=== PATIENT | male | born 1935 | race Caucasian/White ===

== ENCOUNTER 2018-09-24 11:02 | Outpatient (CLI) | payer MEDICARE, BC ==
[~2018-09-24] VITALS: Ht 188 cm; Wt 113.6 kg
--- NOTE | ~2018-09-24 | HEMODYNAMI ---
PATIENT:MYRA QUICK MEDICAL RECORD: [id number] : 31 LOCATION:[facility] ADMISSION DATE: 09/24/18 Generatedon:09/24/201814:05 Patient name: MYRA QUICK Patient #: [id number] SSN: : 1935 Date of study: 09/24/2018 Page: Of Hemodynamic Procedure Report Patient Data Patient Demographics Procedure consent was obtained First Name: MYRA Gender: Male Last Name: YNES : 1935 [facility] Initial: G Age: 83 year(s) Patient #: [id number] Race: Additional ID: [id number] Contact details [address]: [address] [place] [address] State: [place] City: [place] Zip code: [address] Past Medical History Allergies Allergen Reaction Date Comments Reported Contrast 08/09/2015 Iodine 08/09/2015 Toradol 08/09/2015 IV contrast dye 09/24/2018 Adhesive tape 09/24/2018 Toradol 09/24/2018 Admission Admission Data Admission Date: 09/24/2018 Admission Time: 11:02 Admit Source: Other Procedure Procedure Types Cath Procedure Diagnostic Procedure PPM/ICD PPM Dual Implant Sedation Charges Moderate Sedation up to 30 minutes Procedure Description Procedure Date Procedure Date: 09/24/2018 Procedure Start Time: 13:25 Procedure Staff Name Function Ashish Begum MD Performing Physician Jay Nelson MD Assisting physician Laurence Morley RT Monitor Crissy Villareal RN Nurse Bacilio Coyne RT Scrub Procedure Data Cath Procedure Fluoroscopy Diagnostic fluoroscopy Total fluoroscopy Time: 5.8 time: 5.8 min min Diagnostic fluoroscopy Total fluoroscopy dose: 282 dose: 282 mGy mGy Estimated blood loss: 5 ml Procedure Complications No complications Procedure Medications Medication Administration Route Dosage Oxygen etCO2 Nasal cannula 2 l/min Lidocaine 1% added to field 20 Ancef (1Gm/50ml NS) I.V.P.B 1 g Ancef Irrigation Topical 1 g (1gm/500ml NS) Versed I.V. 1 mg Fentanyl I.V. 50 mcg Versed I.V. 1 mg Fentanyl I.V. 50 mcg Clonidine P.O. 0.1 mg Hemodynamics Rest Heart Rate: 39 (bpm) Snapshots Pre Cath Intra NCS Post Cath Vital Signs Time Heart Resp SPO2 etCO2 NIBP (mmHg) Rhythm Pain Sedation Rate (ipm) (%) (mmHg) Status Level (bpm) 12:59:39 37 29 96 0 Measuring SB 0 (11) 10(A) , No pain 13:06:57 37 21 96 0 196/108(164) SB 0 (11) 10(A) , No pain 13:11:44 37 18 93 0 192/66(142) SB 0 (11) 10(A) , No pain 13:16:26 34 18 93 0 188/64(153) SB 0 (11) 10(A) , No pain 13:21:07 35 16 96 0 188/74(146) SB 0 (11) 10(A) , No pain 13:26:59 34 17 95 0 172/58(128) SB 0 (11) 9(A) , No pain 13:31:22 35 18 94 0 136/64(131) SB 0 (11) 9(A) , No pain 13:42:27 31 23 98 0 167/92(148) SB 0 (11) 9(A) , No pain 13:48:07 40 20 99 0 176/88(142) SB 0 (11) 9(A) , No pain 13:53:57 85 27 99 0 200/94(145) Paced 0 (11) 10(A) , No pain 13:58:40 87 26 100 0 200/95(144) Paced 0 (11) 10(A) , No pain 14:03:23 66 31 99 0 204/102(157) Paced 0 (11) 10(A) , No pain Medications Time Medication Route Dose Verified Delivered Reason Notes Effec tiveness by by 12:57:21 Oxygen etCO2 2 Ashish Woodward used for Nasal l/min St Shukri Villareal outdoor adventure leader cannula 12:57:31 Lidocaine added 20ml Ashish Thompson for local 1% to vialx2 St Shukri Nelson MD anesthetic field 12:57:41 Ancef I.V.P.B 1 g Ashish Woodward used for (1Gm/50ml St Shukri Villareal outdoor adventure leader NS) 12:57:47 Ancef Topical 1 g Ashish Woodward used for Irrigation St Shukri Villareal RN procedure (1gm/500ml NS) 13:23:08 Versed I.V. 1 mg Ashish Fossie for sedation St Shukri Villareal RN, MD 13:23:15 Fentanyl I.V. 50 mcg Ashish Fossie for sedation St Shukri Villareal RN, MD 13:29:58 Versed I.V. 1 mg Ashish Fossie for sedation St Shukri Villareal RN, MD 13:30:02 Fentanyl I.V. 50 mcg Ashish Woodward for sedation St Shukri Villareal RN, MD 14:01:58 Clonidine P.O. 0.1 mg [address] for [facility] Shukri Villareal RN hypertension MD Procedure Log Time Note 12:32:31 Admit Source: Other 12:33:16 Diagnostic Cath status Elective 12:33:18 Crissy Villareal RN sent for patient. Start room use. 12:33:26 Time tracking: Regular hours (M-F 7:00 - 5:00) 12:33:30 Plan of Care:Hemodynamics will remain stable., Cardiac rhythm will remain stable., Comfort level will be maintained., Respiratory function will remain adequate., Patient/ family verbilizes understanding of procedure., Procedure tolerated without complication., Recovers from procedure without complications.. 12:42:04 Patient received from Pre/Post Procedure Room to CCL 3 Alert and oriented. Tansferred to table in Supine position. 12:42:05 Warm blankets applied, and tova hugger turned on for patient comfort. 12:42:06 Correct patient and procedure confirmed by team. 12:42:07 Signed procedure consent form obtained from patient. 12:42:07 ECG and BP/O2 sat monitors applied to patient. 12:42:08 Full Disclosure recording started 12:57:21 Oxygen 2 l/min etCO2 Nasal cannula was administered by Crissy Villareal RN; used for procedure; 12:57:31 Lidocaine 1% 20ml vialx2 added to field was administered by Jay Nelson MD; for local anesthetic; 12:57:41 Ancef (1Gm/50ml NS) 1 g I.V.P.B was administered by Crissy Villareal RN; used for procedure; 12:57:47 Ancef Irrigation (1gm/500ml NS) 1 g Topical was administered by Crissy Villareal RN; used for procedure; 12:57:50 Vital chart was started 12:59:57 Baseline sample Acquired. 13:00:04 Rhythm: 2nd degree heart block 13:00:20 H&P Date Dictated: 09/19/2018 Within 30 days and on chart., H&P Addendum completed by physician on day of procedure. (MUST COMPLETE FOR ALL OUTPATIENTS). 13:00:22 Pre-procedure instructions explained to patient. 13:00:22 Pre-op teaching completed and patient verbalized understanding. 13:00:26 Family in patients room. 13:00:27 Patient NPO since Midnight. 13:00:40 Patient allergic to IV contrast dye 13:00:45 Patient allergic to Adhesive tape 13:00:50 Patient allergic to Toradol 13:00:53 Is the patient allergic to Iodine/contrast media? Yes. 13:00:59 Was the patient premedicated? No 13:01:01 Is patient on blood thinner?No 13:01:03 Patient diabetic? Yes. 13:01:04 If diabetic: On Metformin? No 13:01:16 Previous problem with sedation/anesthesia? No ? 13:01:19 Snore? Yes 13:01:19 Sleep apnea? Yes 13:01:20 Deviated septum? No 13:01:21 Opens mouth fully? Yes 13:01:22 Sticks out tongue? Yes 13:01:24 Airway obstruction? No ? 13:01:26 Dentures? No ? 13:01:32 Patient pain scale 0/10 ?. 13:01:46 IV patent on arrival in right forearm with 0.9% NaCl at [facility]. 13:01:48 Lab results completed and on chart. 13:01:55 Left chest area was prepped with chlora-prep and draped in sterile fashion 13:01:56 Alarms reviewed by R. N. 13:01:57 Sharps counted by scrub and verified by R.N. 13:02:13 Use device set BUDDY PPM 13:02:15 2-0 Ticron Multipack ([id number]) opened to sterile field. 13:02:16 3-0 Vicryl Single Pack [id number] opened to sterile field. 13:02:16 5-0 Monocryl PS2 [id number] opened to sterile field. 13:02:16 Cautery Tip Management Coordinator opened to sterile field. 13:02:17 Cautery Pushbutton Pencil opened to sterile field. 13:02:18 Mepilex Dressing ([id number]) opened to sterile field. 13:02:31 Medtronic volunteer patient representative AVERY ARANGO present for procedure. 13:04:17 Pre sharps counted by scrub and verified by RN: Sutures: 7; Sponges: 5; Stick needles: 2; Skin needles: 2; Blade: 1; Cautery: 1 13:04:19 Grounding pad site Left thigh. 13:04:21 Grounding pad site free from injury. 13:06:25 Physician paged 13:21:44 Final Timeout: patient, procedure, and site verified with staff and physician. All members of the team are in agreement. 13:21:57 Left chest site verified by team. 13:22:00 Physical assessment completed. ASA score P 2 - A patient with mild systemic disease as per Ashish Begum MD. 13:22:03 Sedation plan: IV Moderate Sedation Medication:Versed, Fentanyl 13:23:08 Versed 1 mg I.V. was administered by Crissy Villareal RN; for sedation; 13:23:15 Fentanyl 50 mcg I.V. was administered by Crissy Villareal RN; for sedation; 13:25:17 Lidocaine 1% was administered to left subclavicular area by Jay Nelson MD . 13:25:49 Incision made to left subclavicular area. 13:28:50 Generator pocket made/opened. 13:29:54 Left subclavian vein accessed with 7Fr Peel Away Sheath. 13:29:57 Left subclavian vein accessed with 7Fr Peel Away Sheath. 13:29:58 Versed 1 mg I.V. was administered by Crissy Villareal RN; for sedation; 13:30:02 Fentanyl 50 mcg I.V. was administered by Crissy Villareal RN; for sedation; 13:30:23 Ventricular lead inserted and advanced. 13:30:41 Atrial lead inserted and advanced. 13:30:56 DR BEGUM SCRUBBED IN 13:31:59 10- XRAY GAUZE ADDED TO FIELD 13:36:22 Ventricular lead positioned. 13:40:19 Ventricular lead tested. 13:41:55 Ventricular lead repositioned. 13:41:59 Ventricular lead tested. 13:43:22 Atrial lead positioned. 13:44:11 Atrial lead tested. 13:44:57 Atrial lead repositioned. 13:45:00 Atrial lead tested. 13:46:43 Ventricular lead repositioned. 13:46:47 Ventricular lead tested. 13:47:06 Peel-a-way sheath was split and removed. 13:47:10 Peel-a-way sheath was split and removed. 13:48:35 Ventricular lead attachment was completed with 2-0 ticron. 13:49:25 Atrial lead attachment was completed with 2-0 ticron. 13:50:47 PPM Dual was attached to lead(s) and inserted into pocket. 13:50:58 Medtronic Advisa MRI PPM Dual Generator [id number] opened to sterile field. 13:51:35 Medtronic 4074-58 PPM Lead opened to sterile field. 13:52:05 Medtronic 4574-53 PPM Lead opened to sterile field. 13:52:48 Generator was sutured in place with 2-0 ticron. 13:52:54 Device pocket was irrigated with Ancef. 13:53:05 Subcutaneous closure was completed with 3-0 vicryl. 13:53:16 Parameters-- Generator: Mode: DDDR. Lower Rate: 60bpm. Upper Rate: 120bpm. 13:53:35 Parameters--Ventricular P/R Wave: 11.2mV. Current: 0.5mA; Threshold: 1.1V; Impedence: 1350OHMS. 13:53:53 Parameters--Atrial P/R Wave: 1.2mV. Current: 1.9mA; Threshold: 0.7V; Impedence: 435OHMS. 13:54:40 Skin closure was completed with 5-0 monocryl. 13:54:46 Lt Chest incision was dressed with Mepilex dressing. 13:55:10 Procedure ended.(Physican Out) 13:55:20 Fluoroscopy time 05.80 minutes. 13:55:24 Fluoroscopy dose: 282 mGy 13:55:24 Flurop Dose total: 282 13:55:25 Sharps counted by scrub and verified by R.N. 13:55:41 Post sharps counted by scrub and verified by RN: Sutures: 7; Sponges: 5; Stick needles: 2; Skin needles: 2; Blade: 1; Cautery: 1 13:56:01 POST COUNT: 10 - BECCA KEATING 13:56:07 Insertion/operative site no bleeding no hematoma. 13:56:36 Post Chest area:stable, clean and dry 13:56:37 Post Procedure Pulses reassessed and unchanged 13:56:40 Post-procedure physical assessment completed. ASA score P 2 - A patient with mild systemic disease as per Ashish Begum MD. 13:56:42 Post procedure rhythm: unchanged. 13:56:44 Estimated blood loss: 5 ml 13:56:46 Post procedure instruction explained to patient.Patient verbalizes understanding. 13:56:46 Patient needs reinforcement of post procedure teaching. 13:57:09 Procedure type changed to Cath procedure, Diagnostic procedure, PPM/ICD, PPM Dual Implant, Sedation Charges, Moderate Sedation up to 30 minutes 13:57:17 Procedure Complication : No complications 13:57:20 See physician's report for complete and final results. 13:57:46 Immobilizer Large opened to sterile field. 13:58:03 Procedure and supply charges have been captured, reviewed, submitted and are correct. 14:01:58 Clonidine 0.1 mg P.O. was administered by Crissy Villareal RN; for hypertension; 14:04:30 Vital chart was stopped 14:04:32 Report given to PCU. 14:04:38 Patient transfered to PCU with Bed. 14:04:49 End room use (Document Last) Device Usage Item Name Manufacture Quantity Catalog Hospital Part Current Minimal Lot# / Number Charge Number Stock Stock Serial# Code 2-0 Ticron Ethicon 2 [id number] 658615 70184 [id number] 5 Multipack ([id number]) 3-0 Vicryl Ethicon 1 [id number] 660896 602626 745008 5 Single Pack [id number] 5-0 Monocryl Ethicon 1 Y495G 278498 774997 942899 5 PS2 Y495G Cautery Tip Microtek 1 [id number] 261730 457401 411703 5 Management Coordinator [employer] Cautery Microtek 1 [id number] 340505 00385 [id number] 5 Pushbutton Medical Inc[employer] Pencil Mepilex Cardinal 1 [id number] 320056 774553 350438 5 [facility] ([id number]) Medtronic Medtronic 1 A2DR01 [id number] [id number] 5 [id number] Advisa MRI 2020-01-22 PPM Dual Generator A2DR01 Medtronic Medtronic 1 407458 544347 812057 5 [id number] 40758 PPM 2020-05-07 Lead Medtronic Medtronic 1 4574-53 724938 029211 5 [id number] 45753 PPM 2020-05-30 Lead Immobilizer [place] [address] 72-90949 850878 175933 991256 5 Large Health Signature Audit [place] Stage Time Signature Unsigned Intra-Procedure 09/24/2018 Laurence 2:05:37 PM Counts RT(R) Signatures Monitor : Laurence Signature : Counts RT Date : Time : [place] [id number]
[~2018-09-24 11:02] MED LIST: ACETAMINOPHEN500 M1 PO; ASPIRIN325 MG PO; BACTRIM DS TABL1 TAB PO; CASODEX50 MG PO; CENTRUM COMPLE1 EACH PO; COLACE100 MG PO; COREG12.5 MG PO; DULCOLAX5 MG PO; GEODON20 M1 IM; GEODON20 MG IM; GLUCOTROL 5 MG T5 MG PO; ICAPS AREDS1 TAB.SA PO; JANUVIA50 MG PO; LANTUS INSULIN10 ML SQ; LASIX20 MG PO; LIPITOR80 MG PO; MILK OF MAGNESI30 ML PO; MIRALAX17 GM PO; MYLANTA / MAALO30 ML PO; NORVASC5 MG PO; NYSTATIN OINTME15 GM TP; PEPCID20 MG PO; PREDNISONE20 MG PO; PROSCAR5 MG PO; PROTONIX40 MG PO; SENOKOT-S TABLE1 TAB PO; SLOW RELEASE I160 MG PO; THEREMS-M1 TAB PO; XARELTO10 MG PO; XTANDI; ZOFRAN ODT4 MG/UDTAB PO
[2018-09-24] MEDS ORDERED: TOPROL XL50 MG PO (11:25)
[2018-09-24 11:35] VITALS: BP 179/53; BMI 32.1
[2018-09-24 11:56] LABS: HEMATOCRIT 30.7 % (42.0-54.0); HEMOGLOBIN 9.5 g/dL (13.5-17.5); MCH 33.5 pg (26.0-34.0); MCHC 30.9 g/dL (31.0-37.0); MCV 108.1 fL (80.0-100.0); MEAN PLATELET VOLUME 11.9 fL (7.4-10.4); RBC 2.84 10x6/uL (4.20-6.10); WBC 9.2 10x3/uL (4.8-10.8)
[2018-09-24 12:18] LABS: APTT 32.1 SECONDS (22.8-39.4); INR 1.1 (0.85-1.17); PROTIME 13.7 SECONDS (11.6-15.0)
[2018-09-24 12:21] LABS: ANION GAP 8.4 mmol/L (8-16); CALCIUM 11.5 mg/dL (8.5-10.1); CARBON DIOXIDE 30.9 mmol/L (21.0-32.0); CREATININE - SERUM 1.7 mg/dL (0.6-1.3); POTASSIUM - SERUM 4.3 mmol/L (3.5-5.1)
[2018-09-24 15:52] VITALS: BP 136/56
[2018-09-24 15:56] VITALS: Ht 188 cm; Wt 113.6 kg
[2018-09-24 19:00] VITALS: BP 199/73
--- NOTE | 2018-09-24 20:44 | NUR ---
RESUMING PATIENT CARE. PATIENT IS ALERT AND ORIENTED. RESTING COMFORTABLY IN BED. RESPIRATIONS ARE EVEN AND UNLABORED. NO S/S OF DISTRESS. NO C/O PAIN. PATIEN DENIES NEEDS AT THIS TIME. CALL LIGHT WITHIN REACH. WILL CPOC.
[2018-09-25] VITALS: BP 190/73
[2018-09-25 04:00] VITALS: BP 199/46
[2018-09-25 07:55] VITALS: BP 178/55
--- NOTE | 2018-09-25 08:04 | NUR ---
REPORT RECEIVED. WILL CONTINUE WITH POC. PT CURRENTLY LYING SUPINE. CALL LIGHT W/I REACH. RR EVEN AND UNLABORED ON RA. R.FOR PIV IS SALINE LOCKED. PT IS AAO AND DENIES ANY NEEDS. WILL CTM. L.ARM IS IN SLING. PACEMAKER DRESSING IS C/D/I.
--- NOTE | 2018-09-25 09:56 | NUR ---
LEFT ARM IN SLING. AT BS. CALL LIGHT IN REACH. WILL CONT. PLAN OF CARE.
--- NOTE | 2018-09-25 09:57 | MORECARE ---
CASE MANAGEMENT DISCHARGE SUMMARY PATIENT: MYRA QUICK UNIT: [id number] ADM DATE: 09/24/18 AGE: 83 : 33 SEX: M ROOM/BED: D.2125 AUTHOR: DAVE MEZA PHYSICIAN: REFERRING PHYSICIAN: LUIS BEGUM MD DATE OF SERVICE: 09/25/18 Discharge Plan [facility]RA [facility]ICK [facility] [facility] 1935 Planned Disposition: Home with Home Health Anticipated Discharge Date: 09/25/18 Discharge Date: Expected LOS: 1 Initial Reviewer: [email or web address] Initial Review Date: 09/25/2018 Generated: 09/25/18 10:57 am Patient Name: MYRA QUICK Page [id number] at 0957 All edits/amendments must be made on the electronic document DICTATION DATE: 09/25/18955 PROFESSIONAL SOCCER PLAYER: DORA 09/25/18955 RPT#: [id number] DC DATE: STATUS: [facility] I [facility] [address] [place] [address] END OF REPORT
--- NOTE | 2018-09-25 11:07 | MORECARE ---
CASE MANAGEMENT DISCHARGE SUMMARY PATIENT: MYRA QUICK UNIT: [id number] ADM DATE: 09/24/18 AGE: 83 : 33 SEX: M ROOM/BED: D.0026 AUTHOR: DERRICKDOC PHYSICIAN: REFERRING PHYSICIAN: LUIS BEGUM MD DATE OF SERVICE: 09/25/18 Discharge Plan Patient Name: MYRA QUICK Facility: [facility]:[place] : 1935 Planned Disposition: Home with Home Health Anticipated Discharge Date: 09/25/18 Discharge Date: Expected LOS: 1 Initial Reviewer: [email or web address] Initial Review Date: 09/25/2018 Generated: 09/25/18 12:07 pm Comments DCP- Discharge Planning Updated by [email or web address]: Yesenia Trinh on 09/25/18 10:[address] Patient Name: MYRA QUICK Admission Status: Elective Accout number: [id number] Admission Date: 09-24-2018 : 1935 Admission Diagnosis: Attending: LUIS BEGUM Current LOS: 1 Anticipated DC Date: 09-25-2018 Planned Disposition: Home with Home Health Primary Insurance: MEDICARE A & B Discharge Planning Comments: CM MET WITH PATIENT'S YESTERDAY PER HER REQUEST. SHE IS CONCERNED SHE CANT TAKE CARE OF AT HOME. STATES IF HE NEEDS SNF SHE WOULD LIKE THE [facility] SINCE THEY LIVE IN AN APPARTMENT THERE. CM WILL FOLLOW AND ASSIST NEEDED WITH DC PLANNING/NEEDS. Wrapper Sheeter: Yesenia Trinh DCPIA - Discharge Planning Initial Assessment Updated by [email or web address]: Yesenia Trinh on 09/25/18 11:04 am * PCP [facility] * Pharmacy [facility] * Preadmission Environment [facility] Apartment * Facility Name [facility] * ADLs Partial Dependent * Partial ADLs (Assistance needed) Ambulation * Equipment CPAP Walker * List name and contact numbers for known caregivers / representatives who currently or will assist patient after discharge: JOSHUA MOORE, * Community resources currently utilized None * Additional services required to return to the preadmission environment? Yes * Has this patient been hospitalized within the prior 30 days at any hospital? No Last DP export: 09/25/18 8:57 a Patient Name: MYRA QUICK Page 29171 at 1107 All edits/amendments must be made on the electronic document DICTATION DATE: 09/25/181105 BISCUIT FACTORY WORKER: DORA 09/25/181105 RPT#: [id number] DC DATE: STATUS: [facility] [address] [place] [address] END OF REPORT
[2018-09-25 11:14] VITALS: BP 179/73
--- NOTE | 2018-09-25 12:53 | MORECARE ---
CASE MANAGEMENT DISCHARGE SUMMARY PATIENT: MYRA QUICK UNIT: [id number] ADM DATE: 09/24/18 AGE: 83 : 33 SEX: M ROOM/BED: D.4068 AUTHOR: DERRICKDOC PHYSICIAN: REFERRING PHYSICIAN: LUIS BEGUM MD DATE OF SERVICE: 09/25/18 Discharge Plan Patient Name: MYRA QUICK Facility: [facility]:[place] : 1935 Planned Disposition: Inpatient Rehab Anticipated Discharge Date: 09/25/18 Discharge Date: Expected LOS: 1 Initial Reviewer: [email or web address] Initial Review Date: 09/25/2018 Generated: 09/25/18 1:52 pm Comments DCP- Discharge Planning Updated by [email or web address]: Yesenia Trinh on 09/25/18 10:[address] Patient Name: MYRA QUICK Admission Status: Elective Accout number: [id number] Admission Date: 09-24-2018 : 1935 Admission Diagnosis: Attending: LUIS BEGUM Current LOS: 1 Anticipated DC Date: 09-25-2018 Planned Disposition: Home with Home Health Primary Insurance: MEDICARE A & B Discharge Planning Comments: CM MET WITH PATIENT'S YESTERDAY PER HER REQUEST. SHE IS CONCERNED SHE CANT TAKE CARE OF AT HOME. STATES IF HE NEEDS SNF SHE WOULD LIKE THE [facility] SINCE THEY LIVE IN AN APPARTMENT THERE. CM WILL FOLLOW AND ASSIST NEEDED WITH DC PLANNING/NEEDS. Special Library Librarian: Yesenia Trinh DCPIA - Discharge Planning Initial Assessment Updated by [email or web address]: Yesenia Trinh on 09/25/18 11:04 am * PCP [facility] * Pharmacy [facility] * Preadmission Environment [facility] Apartment * Facility Name [facility] * ADLs Partial Dependent * Partial ADLs (Assistance needed) Ambulation * Equipment CPAP Walker * List name and contact numbers for known caregivers / representatives who currently or will assist patient after discharge: JOSHUA MOORE, * Community resources currently utilized None * Additional services required to return to the preadmission environment? Yes * Has this patient been hospitalized within the prior 30 days at any hospital? No Last DP export: 09/25/18 10:07 a Patient Name: MYRA QUICK Page 73958 at 1253 All edits/amendments must be made on the electronic document DICTATION DATE: 09/25/181251 SPECIALTY TRIMMER: DORA 09/25/181251 RPT#: [id number] DC DATE: STATUS: [facility] [address] [place] [address] END OF REPORT
--- NOTE | 2018-09-25 13:03 | MORECARE ---
CASE MANAGEMENT DISCHARGE SUMMARY PATIENT: MYRA QUICK UNIT: [id number] ADM DATE: 09/24/18 AGE: 83 : 33 SEX: M ROOM/BED: D.7291 AUTHOR: DERRICK,DOC PHYSICIAN: REFERRING PHYSICIAN: LUIS BEGUM MD DATE OF SERVICE: 09/25/18 Discharge Plan Patient Name: MYRA QUICK [facility] [facility] 1935 Planned Disposition: Inpatient Rehab Anticipated Discharge Date: 09/25/18 Discharge Date: Expected LOS: 1 Initial Reviewer: [id number] Initial Review Date: 09/25/2018 Generated: 09/25/18 2:02 pm Comments DCP- Discharge Planning Updated by [id number]: Carlos Rowley on 09/25/18 12:[address] Patient Name: MYRA QUICK Encounter No: [id number] : 1935 Primary Insurance: MEDICARE A & B Anticipated DC Date: 09-25-2018 Planned Disposition: Inpatient Rehab External Planned Provider: [facility] DCP follow-up note: CM MET WITH PT AND SPOUSE IN ROOM TO DISCUSS DISCHARGE NEEDS. PT HAS BEEN DISCHARGED HOME. PT'S SPOUSE STATES SHE CANNOT TAKE CARE OF PT AT HOME. PT DOES NOT HAVE THREE MIDNIGHT STAY IN INPATIENT BED TO QUALIFY FOR MEDICARE REHAB SERVICES IN [facility]. CM DISCUSSED HOME HEALTH SERVICES WELL PERSONAL CARE SERVICES. CM DISCUSSED PRIVATE PAY MANAGER WAREHOUSE CARE SERVICES PT DOES NOT QUALIFY FOR MEDICAID SERVICES. PT'S SPOUSE ASKED CM TO CHECK WITH [facility] FOR OPTIONS OF REHAB PLACEMENT AND REPORTS HAVING MANAGER WAREHOUSE CARE POLICY. PT NOR SPOUSE KNOW WHAT THE MANAGER WAREHOUSE CARE POLICY COVERS; CM EXPLAINED THAT MANAGER WAREHOUSE CARE POLICY IN GENERAL, DOES NOT COVER REHAB SERVICES. PT'S SPOUSE REPORTS [facility] HAS PERSONAL CARE SHE MAY HIRE AT HOME IF NECESSARY. CM OBTAINED ORDER FOR PHYSICAL THERAPY EVALUATION. CM CALLED AND SPOKE TO [facility], , WHO EXPLAINED THAT THEY COULD BRING PT TO REHAB AND BILL MEDICARE PART "B" FOR THERAPY SERVICES, BUT PT WOULD STILL HAVE TO PAY $261 PER DAY FOR ROOM AND BOARD. PAU PROVIDED CONTACT INFORMATION FOR HOME CARE SERVICES, PRIVATE PAY, "SERVICES AT HOME", , TO PROVIDE TO PT'S SPOUSE. CM SPOKE TO SPOUSE, PROVIDED PRIVATE PAY INFORMATION. PT'S SPOUSE WANTED THE DOCTOR TO KEEP PT FOR THREE MIDNIGHTS. CM AGAIN EXPLAINED PT'S BED STATUS THAT IS NOT INPATIENT AND THAT EVEN IF PT STAYS ADDITIONAL NIGHTS IN HOSPITAL, THE "CLI" STATUS WILL NOT COUNT TO QUALIFY FOR MEDICARE REHAB PLACEMENT. PT'S SPOUSE STATES THE PRIVATE PAY IS NOT AN OPTION FOR REHAB SERVICES IN [place]. CM ASKED ABOUT CONSIDERATION OF REHAB AT [place]. PT AND SPOUSE WOULD LIKE REHAB HERE AT [place] IF MEDICARE WILL COVER IT ONLY. CM OBTAINED ORDER FOR INPATIENT REHAB PRESCREENING, SPOKE TO JEFF OF [facility] AND DISCUSSED PT'S CIRCUMSTANCES. PT'S SPOUSE REPORTS THAT IF PT IS DECLINED FOR REHAB AT [place], SHE WILL TAKE PT HOME WITH HOME HEALTH AND CONSIDER PERSONAL CARE ON PRIVATE PAY BASIS. CHOICE FOR [facility] SIGNED. CM PROVIDED REFERRAL INFORMATION TO " [facility]" FOR FREE ASSISTANCE WITH LOCATING HOME SERVICES THAT MAY BE MORE AFFORDABLE THAN THOSE OF [facility]. CM WAITING PHYSICAL THERAPY EVALUATION WELL INPATIENT REHAB PRESCREENING RESULTS FROM [facility] INPATIENT RE[facility]. Carlos Rowley, CASE MANAGEMENT DCP- Discharge Planning Updated by [id number]: Yesenia Trinh on 09/25/18 10:[address] Patient Name: MYRA QUICK Admission Status: Elective Accout number: [id number] Admission Date: 09-24-2018 : 1935 Admission Diagnosis: Attending: LUIS BEGUM Current LOS: 1 Anticipated DC Date: 09-25-2018 Planned Disposition: Home with Home Health Primary Insurance: MEDICARE A & B Discharge Planning Comments: CM MET WITH PATIENT'S YESTERDAY PER HER REQUEST. SHE IS CONCERNED SHE CANT TAKE CARE OF AT HOME. STATES IF HE NEEDS SNF SHE WOULD LIKE THE [facility] SINCE THEY LIVE IN AN APPARTMENT THERE. CM WILL FOLLOW AND ASSIST NEEDED WITH DC PLANNING/NEEDS. Product/Device Technologist: Yesenia Trinh DCPIA - Discharge Planning Initial Assessment Updated by [id number]: Yesenia Trinh on 09/25/18 11:04 am * PCP [facility] * Pharmacy [facility] * Preadmission Environment [facility] * Facility Name [facility] * ADLs Partial Dependent * Partial ADLs (Assistance needed) Ambulation * Equipment CPAP Walker * List name and contact numbers for known caregivers / representatives who currently or will assist patient after discharge: JOSHUA MOORE, * Community resources currently utilized None * Additional services required to return to the preadmission environment? Yes * Has this patient been hospitalized within the prior 30 days at any hospital? No Coverage Notice Reviewer: [id number] Haile Rowley Notice Issued Date-Time: 09/25/2018 10:00 Notice Type: Patient Choice Letter Notice Delivered To: Family Member Relationship to Patient: Spouse Milliner Helper Name: OSCAR QUICK Delivery Method: HAND - Hand Delivered Farhana Days: Prior Verbal Notification: Recipient Understood Notice: Yes Recipient Signature: Yes Med Rec Note Co-signed by Attending: Coverage Notice Comment: [facility] Last DP export: 09/25/18 11:52 a Patient Name: MYRA QUICK Page 30809 at 1303 All edits/amendments must be made on the electronic document DICTATION DATE: 09/25/18 1302 SURVEILLANCE OBSERVER: DORA 09/25/18 1302 RPT#: [id number] DC DATE: STATUS: [facility] [address] [place] [address] END OF REPORT
--- NOTE | 2018-09-25 14:29 | NUR ---
Rehab Prescreening Consult recieved and the chart has been reviewed. He meets criteria and he agrres to participate in the required therapy. He will be accepted today. Discussed with the CM Josue Beaulieu RN Clinical Liason, Rehab
--- NOTE | 2018-09-25 14:52 | MORECARE ---
CASE MANAGEMENT DISCHARGE SUMMARY PATIENT: MYRA QUICK UNIT: [id number] ADM DATE: 09/24/18 AGE: 83 : 33 SEX: M ROOM/BED: D.1283 AUTHOR: DAVE MEZA PHYSICIAN: REFERRING PHYSICIAN: LUIS BEGUM MD DATE OF SERVICE: 09/25/18 Discharge Plan Patient Name: MYRA QUICK Facility: [facility]:[place] : 1935 Planned Disposition: Inpatient Rehab Anticipated Discharge Date: 09/25/18 Discharge Date: Expected LOS: 1 Initial Reviewer: [id number] Initial Review Date: 09/25/2018 Generated: 09/25/18 3:52 pm Comments DCP- Discharge Planning Updated by [email or web address]: Carlos Rowley on 09/25/18 1:[address] Patient Name: MYRA QUICK Encounter No: [id number] : 1935 Primary Insurance: MEDICARE A & B Anticipated DC Date: 09-25-2018 Planned Disposition: Inpatient Rehab External Planned Provider: [facility] IN[facility] DCP follow-up note: CM SPOKE TO JEFF OF INPATIENT REHAB, THEY PLAN TO ACCEPT PT TODAY FOR REHAB. PT AND SPOUSE NOTIFIED IN ROOM, BOTH IN AGREEMENT WITH DISCHARGE TO INPATIENT REHAB AT [place]. BEDSIDE NURSE AND RADIATION THERAPIST NURSE NOTIFIED. [facility] INPATIENT REH[facility] TO CONTACT MED 2 NURSE WITH ROOM NUMBER WHEN READY TO ACCEPT PT AND NURSE REPORT. Carlos Rowley, CASE MAURILIO DCP- Discharge Planning Updated by [email or web address]: Carlos Rowley on 09/25/18 12:[address] Patient Name: MRYA QUICK Encounter No: [id number] : 1935 Primary Insurance: MEDICARE A & B Anticipated DC Date: 09-25-2018 Planned Disposition: Inpatient Rehab External Planned Provider: [facility] INPAT[facility] REH[facility] DCP follow-up note: CM MET WITH PT AND SPOUSE IN ROOM TO DISCUSS DISCHARGE NEEDS. PT HAS BEEN DISCHARGED HOME. PT'S SPOUSE STATES SHE CANNOT TAKE CARE OF PT AT HOME. PT DOES NOT HAVE THREE MIDNIGHT STAY IN INPATIENT BED TO QUALIFY FOR MEDICARE REHAB SERVICES IN [facility]. CM DISCUSSED HOME HEALTH SERVICES WELL PERSONAL CARE SERVICES. CM DISCUSSED PRIVATE PAY [facility] C[facility] SERVICES PT DOES NOT QUALIFY FOR MEDICAID SERVICES. PT'S SPOUSE ASKED CM TO CHECK WITH [facility] FOR OPTIONS OF REHAB PLACEMENT AND REPORTS HAVING NURSING HOME CARE POLICY. PT NOR SPOUSE KNOW WHAT THE [facility] CARE POLICY COVERS; CM EXPLAINED THAT NURSING HOME CARE POLICY IN GENERAL, DOES NOT COVER REHAB SERVICES. PT'S SPOUSE REPORTS [facility] HAS PERSONAL CARE SHE MAY HIRE AT HOME IF NECESSARY. CM OBTAINED ORDER FOR PHYSICAL THERAPY EVALUATION. CM CALLED AND SPOKE TO [facility] OF [facility], , WHO EXPLAINED THAT THEY COULD BRING PT TO REHAB AND BILL MEDICARE PART "B" FOR THERAPY SERVICES, BUT PT WOULD STILL HAVE TO PAY $261 PER DAY FOR ROOM AND BOARD. PAU PROVIDED CONTACT INFORMATION FOR HOME CARE SERVICES, PRIVATE PAY, "SERVICES AT HOME", , TO PROVIDE TO PT'S SPOUSE. CM SPOKE TO SPOUSE, PROVIDED PRIVATE PAY INFORMATION. PT'S SPOUSE WANTED THE DOCTOR TO KEEP PT FOR THREE MIDNIGHTS. CM AGAIN EXPLAINED PT'S BED STATUS THAT IS NOT INPATIENT AND THAT EVEN IF PT STAYS ADDITIONAL NIGHTS IN HOSPITAL, THE "CLI" STATUS WILL NOT COUNT TO QUALIFY FOR MEDICARE REHAB PLACEMENT. PT'S SPOUSE STATES THE PRIVATE PAY IS NOT AN OPTION FOR REHAB SERVICES IN [place]. CM ASKED ABOUT CONSIDERATION OF REHAB AT [place]. PT AND SPOUSE WOULD LIKE REHAB HERE AT [place] IF MEDICARE WILL COVER IT ONLY. CM OBTAINED ORDER FOR INPATIENT REHAB PRESCREENING, SPOKE TO JEFF OF [facility] AND DISCUSSED PT'S CIRCUMSTANCES. PT'S SPOUSE REPORTS THAT IF PT IS DECLINED FOR REHAB AT [place], SHE WILL TAKE PT HOME WITH HOME HEALTH AND CONSIDER PERSONAL CARE ON PRIVATE PAY BASIS. CHOICE FOR PARTH HOME HEALTH SIGNED. CM PROVIDED REFERRAL INFORMATION TO " [facility]" FOR FREE ASSISTANCE WITH LOCATING HOME SERVICES THAT MAY BE MORE AFFORDABLE THAN THOSE OF [facility]. CM WAITING PHYSICAL THERAPY EVALUATION WELL INPATIENT REHAB PRESCREENING RESULTS FROM [facility] IN[facility] RE[facility]. Carlos Rowley, CASE MANAGEMENT DCP- Discharge Planning Updated by [id number]: Yesenia Trinh on 09/25/18 10:[address] Patient Name: MYRA QUICK Admission Status: Elective Accout number: [id number] Admission Date: 09-24-2018 : 1935 Admission Diagnosis: Attending: LUIS BEGUM Current LOS: 1 Anticipated DC Date: 09-25-2018 Planned Disposition: Home with Home Health Primary Insurance: MEDICARE A & B Discharge Planning Comments: CM MET WITH PATIENT'S YESTERDAY PER HER REQUEST. SHE IS CONCERNED SHE CANT TAKE CARE OF AT HOME. STATES IF HE NEEDS SNF SHE WOULD LIKE THE [facility] SINCE THEY LIVE IN AN APPARTMENT THERE. CM WILL FOLLOW AND ASSIST NEEDED WITH DC PLANNING/NEEDS. Manufacturing Engineer Automotive: Yesenia Trinh DCPIA - Discharge Planning Initial Assessment Updated by [email or web address]: Yesenia Trinh on 09/25/18 11:04 am * PCP [facility] * Pharmacy [facility] * Preadmission Environment [facility] Apartment * [facility] * ADLs Partial Dependent * Partial ADLs (Assistance needed) Ambulation * Equipment CPAP Walker * List name and contact numbers for known caregivers / representatives who currently or will assist patient after discharge: JOSHUA MOORE, * Community resources currently utilized None * Additional services required to return to the preadmission environment? Yes * Has this patient been hospitalized within the prior 30 days at any hospital? No Coverage Notice Reviewer: [id number] Rowley Notice Issued Date-Time: 09/25/2018 10:00 Notice Type: Patient Choice Letter Notice Delivered To: Family Member Relationship to Patient: Spouse Circuit Walker Name: OSCAR QUICK Delivery Method: HAND - Hand Delivered Farhana Days: Prior Verbal Notification: Recipient Understood Notice: Yes Recipient Signature: Yes Med Rec Note Co-signed by Attending: Coverage Notice Comment: [facility] Reviewer: [id number] Haile Rowley Notice Issued Date-Time: 09/25/2018 9:50 Notice Type: Patient Choice Letter Notice Delivered To: Family Member Relationship to Patient: Spouse Circuit Walker Name: OSCAR QUICK Delivery Method: HAND - Hand Delivered Farhana Days: Prior Verbal Notification: Recipient Understood Notice: Yes Recipient Signature: Yes Med Rec Note Co-signed by Attending: Coverage Notice Comment: [facility] Last DP export: 09/25/18 12:02 p Patient Name: MYRA QUICK Page 85910 at 1452 All edits/amendments must be made on the electronic document DICTATION DATE: 09/25/181450 ULTRASONIC SEAMING MACHINE OPERATOR: DORA 09/25/181450 RPT#: [id number] DC DATE: STATUS: [facility] [address] [place] [address] END OF REPORT
[2018-09-25 15:33] VITALS: BP 185/76
--- NOTE | 2018-09-25 17:48 | NUR ---
PT TRANSFERED TO REHAB VIA WHEELCHAIR WITH HOSPITAL STAFF. PT SIGNED DISCHARGE PAPERWORK AND REMOVED ALL VALUABLES FROM THE ROOM. TELEMETRY REMOVED AND RETURNED. PIV REMOVED WITH CATHETER TIP FULLY INTACT.
--- NOTE | 2018-09-27 14:05 | OP ---
PATIENT NAME: MYRA QUICK MEDICAL RECORD: [id number] :31 LOCATION:D.CAT ADMISSION DATE: SURGEON: MAR GOODWIN MD DATE OF OPERATION: 09/24/2018 PREOPERATIVE DIAGNOSES: 1. Symptomatic bradycardia. 2. Arteriovenous block. 3. Hypertension. 4. Diabetes mellitus. 5. Coronary artery disease. POSTOPERATIVE DIAGNOSES: 1. Symptomatic bradycardia. 2. Arteriovenous block. 3. Hypertension. 4. Diabetes mellitus. 5. Coronary artery disease. PROCEDURE IN DETAIL: 1. Left subclavian vein dual-lead pacemaker placement. 2. Fluoroscopic interpretation. SURGEON: Mar Goodwin MD CO-SURGEON: Ashish Angelo MD REPORT OF PROCEDURE: The patient's left chest was prepped and draped in sterile fashion. A 20 mL of 1% lidocaine with epinephrine was infused into the surrounding tissues. A skin incision was made on the left superior lateral chest and a subcutaneous pouch was made over the pectoral fascia. The needles were used to cannulate the left subclavian vein times 2 and guidewires were advanced with ease. Fluoro was used to note that the wires were in good position in the venous system. At this point, dilator trocar devices were placed over the wires and the wires and dilators were removed. The 2 leads were advanced into the venous system under direct visualization. At this point, Dr. Angelo positioned the leads appropriately in the atrium and ventricle. Once the leads were noted to be functioning appropriately, then these were sutured into place with 0 Ti-Cron. The pacemaker was affixed to the leads and placed into the subcutaneous pouch. This was sutured to the pectoral fascia using interrupted 0 Ti-Cron. The wound was then irrigated out with antibiotic solution. The subcutaneous tissues were reapproximated with interrupted 3-0 Vicryls and the skin was closed with running subcutaneous 5-0 Monocryl. COMPLICATIONS: None. CONDITION: Stable. ANESTHESIA: Local MAC. BLOOD LOSS: Minimal. TRANSINT:[id number] Voice Confirmation ID: [id number] DOCUMENT ID: [id number] OPERATIVE REPORT [id number] MYRA QUICK MAR GOODWIN MD at 140 CC: [id number] DICTATION DATE: 09/24/18 1401 NURSE RESEARCHER: 09/24/18 1602 DEP CLI 09/25/18 [facility] [address] [place] [address]
--- NOTE | 2018-09-30 15:26 | OP ---
PATIENT NAME: MYRA MICHAEL MEDICAL RECORD: [id number] :[birth year] LOCATION:D.CAT ADMISSION DATE: SURGEON: LUIS BEGUM MD DATE OF OPERATION: 09/24/2018 PROCEDURE: Lead portion of permanent pacemaker placement. INDICATION: Complete heart block. DESCRIPTION OF PROCEDURE: After left subclavian was cannulated via direct visualization via Dr. Nelson, first under fluoroscopic guidance, I placed the RV lead in the RV apex without difficulty. After adequate R waves and thresholds were obtained, the right atrial lead was placed in right atrial appendage without difficulty. After adequate P waves and thresholds were again obtained, the leads were attached to appropriate poles of the generator and the pocket was closed via Dr. Nelson. IMPRESSION: Successful lead portion of permanent pacemaker placement on Myra Michael. ESTIMATED BLOOD LOSS: Minimal. COMPLICATIONS: None. DISPOSITION: To the floor, stable. TRANSINT:[id number] Voice Confirmation ID: [id number] DOCUMENT ID: [id number] LUIS BEGUM MD at 1526 CC: [id number] DICTATION DATE: 09/24/18 1352 EMS EDUCATOR: 09/24/18 1527 DEP CLI 09/25/[address] [address]
== END 2018-09-25 17:51 ==
LOC: D.CATH 11:02 → D.M2 14:50 → D.CATH 09-25 17:51
PROVIDERS: Internal Medicine Interventional Cardiology
DX: I44.2 Atrioventricular block, complete (principal); R00.1 Bradycardia, unspecified; I25.10 Atherosclerotic heart disease of native coronary artery without angina pectoris; E11.9 Type 2 diabetes mellitus without complications; I10 Essential (primary) hypertension

== ENCOUNTER 2018-09-25 18:08 | Inpatient (IN) | payer MEDICARE, BC ==
[~2018-09-25] VITALS: Ht 188 cm; Wt 109.3 kg
[~2018-09-25 18:08] MED LIST changes: +TOPROL XL50 MG PO
[2018-09-25 19:41] VITALS: BP 167/73; BMI 31.0
[2018-09-26 01:19] VITALS: BP 167/73
[2018-09-26 06:18] LABS: BASOPHILS 0 % (0-2); EOSINOPHILS 3.1 % (0-7); HEMATOCRIT 31.6 % (42.0-54.0); HEMOGLOBIN 9.7 g/dL (13.5-17.5); IMMATURE GRANULOCYTES 0.9 % (0-5); LYMPHOCYTES 15.2 % (15-50); MCH 32.8 pg (26.0-34.0); MCHC 30.7 g/dL (31.0-37.0); MCV 106.8 fL (80.0-100.0); MEAN PLATELET VOLUME 11.2 fL (7.4-10.4); MONOCYTES 9.7 % (2-11); NEUTROPHILS 71.1 % (40-80); PLATELET COUNT 262 10x3/uL (130-400); RBC 2.96 10x6/uL (4.20-6.10); RDW 14.5 % (11.5-14.5)
[2018-09-26 06:22] LABS: WBC 6.5 10x3/uL (4.8-10.8)
[2018-09-26 07:03] LABS: CALCIUM 11.1 mg/dL (8.5-10.1); CARBON DIOXIDE 30.5 mmol/L (21.0-32.0); POTASSIUM - SERUM 4.5 mmol/L (3.5-5.1)
[2018-09-26 07:06] LABS: CREATININE - SERUM 1.2 mg/dL (0.6-1.3)
[2018-09-26 08:00] VITALS: BP 189/78
[2018-09-26 12:28] VITALS: BMI 30.9
--- NOTE | 2018-09-26 12:39 | RHP ---
PATIENT: MYRA QUICK MEDICAL RECORD: [id number] ACCOUNT: [id number] [facility] [birth year] ADMISSION DATE: 09/25/18 REHABILITATION HISTORY AND PHYSICAL EXAMINATION POST ADMISSION PHYSICIAN EXAMINATION ADMITTING DIAGNOSIS: Third-degree heart block. HISTORY OF PRESENT ILLNESS: The patient is an 83-year-old gentleman who was admitted for a cardiac complaint of a third-degree heart block. The patient began not feeling well. He was having shortness of breath, dizziness, weak in his legs, could not stand for any length of time. He went to his cutter grinder, placed on 24-hour child monitor, noted to have some PVCs first, second and third-degree heart block and bradycardia. His heart rate was 38. He was evaluated by cutter grinder and scheduled to have a pacemaker placed. He was admitted to the hospital on 09/24/2018 for pacemaker placement. He has got a past medical history of CVA, TIA. He has had a detached retina in the past, diabetes, sick sinus syndrome, hypertension, coronary artery disease, obstructive sleep apnea, prostate cancer, reflux and spine problems with noted muscle weakness after back surgery. He is on telemetry. He has got some new onset confusion, difficulty with weightbearing to his left upper extremity secondary to pacemaker placement. He is on supplemental O2. He has been having some bradycardia prior to the pacemaker placement, elevated blood sugars and also hypertension and secondary to his advanced age, progressive decline dizziness, gait disturbance, weakness, and self-care deficits. These are all barriers to him discharging home. He and his would like to get him back home at his prior level of functioning or better if possible. COMORBIDITIES: In this patient include symptomatic bradycardia, AV block, hypertension, diabetes, coronary artery disease, hyperlipidemia, dyspnea, and hypertension. PAST MEDICAL HISTORY: Significant for CVA, TIA, coronary artery disease, hypertension, sleep apnea, prostate cancer, acid reflux, muscle weakness and back problems. PAST SURGICAL HISTORY: Includes angioplasty, mastoid surgery, adenoids, tonsillectomy. He has had herniated disc repair, arthroscopy, cataracts, right knee replacement, laminectomy, and posterior spinal fusion. ALLERGIES: IODINATED CONTRAST, ANY TYPE OF ADHESIVE, IODINE, AND TORADOL. CURRENT MEDICATIONS: Include Januvia 50 mg daily, he is on metoprolol 25 mg b.i.d., glipizide 5 mg b.i.d., finasteride 5 mg daily, multivitamin daily, beta carotene daily, Lipitor 80 mg daily, he is on aspirin 325 daily, Tylenol 650 q.4-6 hours p.r.n. pain or fever, and he is also on Colace 100 mg b.i.d. HABITS: No alcohol or tobacco use. FAMILY HISTORY: Noncontributory. SOCIAL HISTORY: The patient hopes to return back home and get back to his prior level of functioning. REVIEW OF SYSTEMS: HISTORY AND PHYSICAL [id number] MYRA QUICK GENERAL: Does complain of weakness and fatigue. HEENT: Denies cold, cough, or congestion. CARDIOVASCULAR: He denied chest pain. VITAL SIGNS: Stable, afebrile. Generally a somewhat obese gentleman, in no acute distress, alert upon exam. HEENT: Normocephalic and atraumatic. Mucosa moist. NECK: Supple. No lymphadenopathy. LUNGS: Clear at this time. HEART: Regular rate and rhythm. ABDOMEN: Benign. EXTREMITIES: No clubbing, cyanosis or edema. NEUROLOGIC: He does have some noted proximal muscle weakness. LABORATORY DATA: His white count is 6.5. His H&H are 9.7 and 31.6 and platelet count is noted to be 262. His MCV is elevated at 106.8, which is worrisome for him being a drinker in the past. His sodium is 148, potassium 4.5, BUN and creatinine of 26 and 1.2, and blood sugar is 133. ASSESSMENT: This is an 83-year-old gentleman admitted to the rehab with a working diagnosis of complete heart block status post pacemaker placement. The patient has potential to make improvement. We instituted the following multidisciplinary therapies including, but not limited to physical, occupational, respiratory, speech, nutritional services, prosthetics, and orthotics. Given his complex medical condition and risk for more complications, rehabilitation services cannot be provided at a low level of care such as [facility] facility. PLAN: 1. Admit to [facility] for intensive inpatient therapy to include the following disciplines: A. Physical therapy to help with gait and activities of daily life. B. Occupational therapy to help with activities of daily living and getting him up and down. C. Case management to help with any discharge planning and placement. D. Nutrition to assist with nutritional needs. E. Rehabilitation nursing to assist in monitoring the patient's underlying medical conditions and to assist with any type of bowel or bladder management. 2. The patient's current medication and medical care will be continued. 3. The patient will be placed on standard fall precautions. 4. The patient's estimated length of stay is approximately 7-10 days. 5. We will discuss this patient during care team staff meeting this week. TRANSINT:[id number] Voice Confirmation ID: [id number] DOCUMENT ID: [id number] KERRI notes whether there has been none or any medical/functional change since admission: - No change since prescreen. KERRI attests patient continues to be appropriate for IRF: - Continues to be appropriate. HISTORY AND PHYSICAL [id number] MYRA QUICK SCOTT MD at 1239 CC: [id number] DICTATION DATE: 09/26/18 0832 LIFE ASSURANCE REPRESENTATIVE: 09/26/18 0925 ADM IN [place] [id number] [place] [address]
[2018-09-26 19:00] VITALS: BP 154/66
[2018-09-27 07:21] LABS: BASOPHILS 0.2 % (0-2); EOSINOPHILS 3.9 % (0-7); HEMATOCRIT 31.4 % (42.0-54.0); HEMOGLOBIN 9.7 g/dL (13.5-17.5); IMMATURE GRANULOCYTES 1.5 % (0-5); LYMPHOCYTES 17.7 % (15-50); MCH 32.8 pg (26.0-34.0); MCHC 30.9 g/dL (31.0-37.0); MCV 106.1 fL (80.0-100.0); MEAN PLATELET VOLUME 11.3 fL (7.4-10.4); MONOCYTES 9.7 % (2-11); PLATELET COUNT 264 10x3/uL (130-400); RBC 2.96 10x6/uL (4.20-6.10); RDW 14.4 % (11.5-14.5); WBC 5.9 10x3/uL (4.8-10.8)
[2018-09-27 07:29] LABS: ANION GAP 10.4 mmol/L (8-16); CALCIUM 10.4 mg/dL (8.5-10.1); CARBON DIOXIDE 29.3 mmol/L (21.0-32.0); CREATININE - SERUM 1.2 mg/dL (0.6-1.3)
[2018-09-27 07:30] VITALS: BP 167/56
[2018-09-27 07:38] LABS: POTASSIUM - SERUM 3.7 mmol/L (3.5-5.1)
[2018-09-27 20:01] VITALS: BP 173/58
[2018-09-28 08:42] VITALS: BP 130/79
[2018-09-28 20:00] VITALS: BP 170/49
[2018-09-29 11:01] VITALS: BP 165/72
[2018-09-30 01:43] VITALS: BP 169/73
[2018-09-30 06:40] LABS: BASOPHILS 0.1 % (0-2); EOSINOPHILS 5.2 % (0-7); HEMATOCRIT 29.8 % (42.0-54.0); HEMOGLOBIN 9.1 g/dL (13.5-17.5); IMMATURE GRANULOCYTES 1.1 % (0-5); LYMPHOCYTES 14.8 % (15-50); MCH 32.7 pg (26.0-34.0); MCHC 30.5 g/dL (31.0-37.0); MCV 107.2 fL (80.0-100.0); MEAN PLATELET VOLUME 10.7 fL (7.4-10.4); MONOCYTES 6.6 % (2-11); NEUTROPHILS 72.2 % (40-80); PLATELET COUNT 253 10x3/uL (130-400); RBC 2.78 10x6/uL (4.20-6.10); RDW 14.7 % (11.5-14.5); WBC 7.5 10x3/uL (4.8-10.8)
[2018-09-30 07:06] LABS: ANION GAP 9.2 mmol/L (8-16); CALCIUM 10.4 mg/dL (8.5-10.1); CARBON DIOXIDE 31.6 mmol/L (21.0-32.0); CREATININE - SERUM 1.4 mg/dL (0.6-1.3); POTASSIUM - SERUM 3.8 mmol/L (3.5-5.1)
[2018-09-30 08:27] VITALS: BP 172/68
[2018-09-30 19:00] VITALS: BP 99/63
[2018-10-01 08:00] VITALS: BP 161/55
[2018-10-01 08:49] LABS: CKMB 3.4 U/L (0.0-3.6); PRO BNP 5684 pg/mL (0-450)
[2018-10-01 08:55] LABS: TROPONIN-I 0.149 ng/mL (0.000-0.060)
[2018-10-01 16:15] VITALS: Ht 188 cm; Wt 109.3 kg
[2018-10-01 16:40] LABS: CREATINE KINASE 83 UL (21-232)
[2018-10-01 16:43] LABS: TROPONIN-I 0.141 ng/mL (0.000-0.060)
[2018-10-01 19:00] VITALS: BP 166/64
[2018-10-01 21:59] LABS: CKMB 0.3 U/L (0.0-3.6); CREATINE KINASE 78 UL (21-232); TROPONIN-I 0.097 ng/mL (0.000-0.060)
[2018-10-02 07:31] LABS: BASOPHILS 0 % (0-2); EOSINOPHILS 2.8 % (0-7); HEMOGLOBIN 9.7 g/dL (13.5-17.5); IMMATURE GRANULOCYTES 0.9 % (0-5); LYMPHOCYTES 10.7 % (15-50); MCH 33.2 pg (26.0-34.0); MCHC 31.3 g/dL (31.0-37.0); MCV 106.2 fL (80.0-100.0); MEAN PLATELET VOLUME 11.3 fL (7.4-10.4); MONOCYTES 7.7 % (2-11); NEUTROPHILS 77.9 % (40-80); PLATELET COUNT 270 10x3/uL (130-400); RBC 2.92 10x6/uL (4.20-6.10); WBC 10.2 10x3/uL (4.8-10.8)
[2018-10-02 07:47] LABS: ANION GAP 10.7 mmol/L (8-16); CALCIUM 10.5 mg/dL (8.5-10.1); CARBON DIOXIDE 30.2 mmol/L (21.0-32.0); CREATININE - SERUM 1.2 mg/dL (0.6-1.3); POTASSIUM - SERUM 3.9 mmol/L (3.5-5.1)
[2018-10-02 08:00] VITALS: BP 183/70
--- NOTE | 2018-10-03 18:15 | EC ---
PATIENT:MYRA UQICK DATE OF SERVICE: 09/25/18 SEX: M MEDICAL RECORD: [id number] DATE OF : [birth year] LOCATION:[place] [address] AGE OF PATIENT: 83 ADMISSION DATE: 09/25/18 REFERRING PHYSICIAN: INTERPRETING PHYSICIAN: SIMONA ANDRES MD ECHOCARDIOGRAM REPORT ECHO CHARGES 4 ECHO COMPLETE Date: 10/01/18 CLINICAL DIAGNOSIS: CHEST PAIN ECHOCARDIOGRAPHIC MEASUREMENTS (adult normal given) AC root (d.<3.7cm) 4.1 cm LV Septum d (<1.2 cm> 1.3 cm Valve Excursion 1.3 cm LV Septum (systole) 1.4 cm Left Atria (s.<4.0cm> 3.9 cm LVPW d(<1.2cm) 1.5 cm RV (d.<2.3cm) 4.3 cm LVPW (sytole) 1.9 cm LV diastole(<5.6CM) 5.7 cm MV E-F(>70mm/sec) cm LV systole 4.1 cm LVOT Diameter 1.6 cm MV exc.(>10mm) cm Est.ejection fraction (50-75%) % DOPPLER: LVIT cm/sec A 119 cm/sec E 98.0 cm/sec LA cm/sec RVSP 26 mmHg LVOT 148 cm/sec AOP1/2T m/s Asc. Ao 166 cm/sec RVOT 93 cm/sec RA cm/sec PA 148 cm/sec AV Gradient Peak 10.99mmHg AV Mean 6.31 mmHg AV Area 1.8 cm MV Gradient Peak 8.18 mmHg MV Mean 3.39 mmHg MV Area cm COMMENTS: Oxyacetylene Burner: Gustavo MAGUIRE Still Cleaner: 1 Dr. Andres TAPE# PACS Pericardial Effusion N DATE OF SERVICE: 10/01/2018 FINDINGS: 1. Left ventricular chamber size is within normal limits. Left ventricular systolic function is normal. Overall ejection fraction is estimated at 55%. 2. Left atrium is within normal limits at 3.9 cm. Right atrium and right ventricle chamber sizes are mildly dilated. 3. Valvular structures have normal structure and motion. 4. Doppler interrogation reveals mild mitral regurgitation and mild tricuspid regurgitation. No other valvular insufficiency or stenosis. Pulmonary systolic ECHOCARDIOGRAM REPORT [id number] MYRA QUICK pressure is estimated at 26 mmHg. 5. No evidence of pericardial effusion or left ventricular thrombus. TRANSINT:[id number] Voice Confirmation ID: [id number] DOCUMENT ID: [id number] SIMONA ANDRES MD at 1815 CC: [id number] DICTATION DATE: 10/01/18 1614 LIEUTENANT/DEPUTY: 10/01/181926 DIS IN 10/02/18 [place] [id number] [place] [id number]
== END 2018-10-02 12:36 | disposition short-term general hospital (02) | DRG 310 ==
LOC: D.REHAB 18:08
PROVIDERS: Internal Medicine Interventional Cardiology; ADMIT Emergency Medicine
DX: I44.2 Atrioventricular block, complete (principal); I10 Essential (primary) hypertension; I25.10 Atherosclerotic heart disease of native coronary artery without angina pectoris; E78.5 Hyperlipidemia, unspecified; I49.5 Sick sinus syndrome; G47.33 Obstructive sleep apnea (adult) (pediatric); Z95.0 Presence of cardiac pacemaker; R06.00 Dyspnea, unspecified; E11.65 Type 2 diabetes mellitus with hyperglycemia; R09.02 Hypoxemia

== ENCOUNTER 2018-10-02 11:03 | Inpatient (IN) | payer MEDICARE, BC ==
[2018-10-02] VITALS (12 sets, daily range): BP systolic 143–174; BP diastolic 54–82; BMI 30.3
[~2018-10-02] VITALS: Ht 188 cm; Wt 108.4 kg
--- NOTE | ~2018-10-02 | OP ---
PATIENT NAME: MYRA MICHAEL MEDICAL RECORD: [id number] :31 LOCATION:[facility] D.2303 ADMISSION DATE:10/02/18 SURGEON: ISAIAS CALIX MD DATE OF OPERATION: 10/03/2018 PROCEDURE: Fiberoptic bronchoscopy. INDICATION: Mr. Michael is an 83-year-old gentleman who has acute hypoxic respiratory failure. He had pneumonia, right upper lobe, right lower lobe with consolidation air bronchogram. Fiberoptic bronchoscopy was carried out to remove any mucous plugging as well as to obtain specimen for culture and sensitivity. PROCEDURE: The conscious sedation was given by TIVA. MONITORING: EKG, pulse, and blood pressure were monitored throughout the procedure. PROCEDURE IN DETAIL: Passing the bronchoscope through the mouth. The vocal cords were normal, moving equally on phonation. The epiglottis was normal. The main trachea was normal. There was some tracheomalacia that were closing almost with coughing and expiration. The taylor was sharp. There was inflammation bronchitic changes of the right main bronchus, right upper lobe bronchus. There was thick yellowish secretion coming from the upper segment. No endobronchial lesion was seen. In the right lower lobe, there were bronchitic changes. There was thick yellowish secretion. No endobronchial lesion was seen. The left main bronchus was normal. The subsegment to the left upper lobe within normal range. No endobronchial lesion was seen. There were bronchitic changes both to the upper and lower lobe. There was thick yellowish secretion from the left lower lobe. Specimen washing was obtained and sent for routine culture and sensitivity, AFB and fungus and cytology. Overall, the patient tolerated the procedure very well. TRANSINT:[id number] Voice Confirmation ID: [id number] DOCUMENT ID: [id number] ISAIAS CALIX MD CC: [id number] DICTATION DATE: 10/03/18 1548 SCHEDULE SUPERVISOR: 10/03/182147 [place] [address]
--- NOTE | ~2018-10-02 | CN ---
PATIENT NAME:MYRA MICHAEL MEDICAL RECORD: [id number] : 31 LOCATION:[facility]2303 ADMIT DATE: 10/02/18 ACCOUNT: [id number] CONSULTING PHYSICIAN: ISAIAS CALIX MD REFERRING PHYSICIAN: JORDAN DANIEL MD DATE OF CONSULTATION: 10/03/2018 CONSULT REQUESTING PHYSICIAN: Les Tee DO REASON FOR CONSULTATION: Acute hypoxic respiratory failure. HISTORY OF PRESENT ILLNESS: Mr. 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 Yesterday morning, the patient was hypoxic with SpO2 in 60s and 80s. The patient was transferred to the ICU, suspected pulmonary embolism. The patient had a CTA of the chest this morning, which did not show any PE, but did show consolidation of the right upper lobe with atelectasis as well as left lower lobe. There is also pleural effusion. REVIEW OF SYSTEMS: As in history of present illness. PAST MEDICAL HISTORY: 1. CVA. 2. TIA. 3. Coronary artery disease. 4. Obstructive sleep apnea. 5. History of prostate cancer. 6. Gastroesophageal reflux disease. 7. Hyperlipidemia. 8. Diabetes mellitus. PAST SURGICAL HISTORY: He is status post pacemaker placement. His other past surgical history is tonsillectomy, mastoid surgery, adenoidectomy, angioplasty, herniated disc repair, arthroscopic surgeries, cataract surgery, knee replacement, laminectomy, and posterior spinal fusions. ALLERGIES: HE IS ALLERGIC TO IV CONTRAST DYE, ADHESIVE, TORADOL. MEDICATIONS: On [employer] is reviewed. PERSONAL AND SOCIAL HISTORY: The patient is a nonsmoker, nondrinker. FAMILY HISTORY: Noncontributory. PHYSICAL EXAMINATION: GENERAL: Now, the patient is lying comfortably. He is not in acute distress. VITAL SIGNS: The blood pressure is 146/64, pulse is 81, respiration is 18, temperature is 98.1, and SPO2 is 97% on 4 liters nasal cannula. HEENT: Conjunctivae are pink. Sclerae are not icteric. NECK: Supple, no JVD. CHEST: The chest excursion is minimal on the left side. There are crackles. No wheezing. HEART: Rhythm regular, normal sound, no murmur. ABDOMEN: Soft, bowel sounds present. No hepatosplenomegaly. RECTAL: Deferred. CONSULT REPORT [id number] MYRA MICHAEL EXTREMITIES: No cyanosis, no clubbing, no pedal edema. CENTRAL NERVOUS SYSTEM: The patient is awake and alert. There are no obvious cranial nerve abnormality. The gait was not tested. IMAGING: CTA of the chest; there is no evidence of pulmonary embolism, but there is bilateral pleural effusion. There is consolidation of the right upper lobe, left lower lobe. There is renal calculi. OTHER LABORATORY DATA: CBC: The WBC is 13.4, hemoglobin 9.1, hematocrit 29.5 and the platelet count is 260. Chemistry: Sodium 146, potassium 4.47, BUN is 28, creatinine is 1.4. ABG: The pH was 7.41, pCO2 39.4, pO2 is 83, bicarbonate of 25.1. IMPRESSION: 1. Acute hypoxic respiratory failure. 2. Atelectasis of the right upper lobe. 3. Pneumonia, bilateral, consistent with hospital-acquired pneumonia, possible aspiration. 4. Pleural effusion. 5. Elevated cardiac enzyme. 6. Status post pacemaker placement for third-degree heart block. 7. Obstructive sleep apnea. 8. Hypernatremia. 9. Acute renal failure. RECOMMENDATION: 1. Start on Zosyn IV, vancomycin IV, Levaquin IV. 2. Incentive spirometry and flutter every 2 hourly when awake. 3. Swallowing evaluation. 4. Follow up labs and chest radiograph. 5. We will proceed with fiberoptic bronchoscopy to remove any mucous plug. Dr. Tee, thank you for involving me in the care of Mr. Michael. TRANSINT:[id number] Voice Confirmation ID: [id number] DOCUMENT ID: [id number] ISAIAS CALIX MD CC: [id number] DICTATION DATE: 10/03/18 1143 MACHINE PACKAGE SEALER: 10/03/18 1251 ADM IN [facility] [address] [place] [address]
[2018-10-02 14:23] LABS: BASOPHILS 0 % (0-2); EOSINOPHILS 3.1 % (0-7); HEMATOCRIT 28.5 % (42.0-54.0); HEMOGLOBIN 8.8 g/dL (13.5-17.5); IMMATURE GRANULOCYTES 0.8 % (0-5); LYMPHOCYTES 9.7 % (15-50); MCH 33.3 pg (26.0-34.0); MCHC 30.9 g/dL (31.0-37.0); MONOCYTES 6.9 % (2-11); NEUTROPHILS 79.5 % (40-80); PLATELET COUNT 255 10x3/uL (130-400); RBC 2.64 10x6/uL (4.20-6.10); RDW 15.1 % (11.5-14.5); WBC 10.3 10x3/uL (4.8-10.8)
[2018-10-02 14:37] LABS: INR 1.13 (0.85-1.17)
[2018-10-02 14:39] LABS: APTT 93.3 SECONDS (22.8-39.4); D-DIMER-QUANTITATIVE 2.09 ug/mLFEU (0.20-0.54)
[2018-10-02 14:44] LABS: ALBUMIN 2.1 g/dL (3.4-5.0); ANION GAP 8.1 mmol/L (8-16); BILIRUBIN - TOTAL 0.28 mg/dL (0.2-1.3); CARBON DIOXIDE 34.1 mmol/L (21.0-32.0); CREATININE - SERUM 1.4 mg/dL (0.6-1.3); POTASSIUM - SERUM 4.2 mmol/L (3.5-5.1); PROTEIN - SERUM 5.9 g/dL (6.4-8.2)
--- NOTE | 2018-10-02 16:21 | MORECARE ---
CASE MANAGEMENT DISCHARGE SUMMARY PATIENT: MYRA MICHAEL UNIT: [id number] ADM DATE: 10/02/18 AGE: 83 : [birth year] SEX: M ROOM/BED: D.2303 AUTHOR: DAVE MEZA PHYSICIAN: REFERRING PHYSICIAN: JORDAN DANIEL MD DATE OF SERVICE: 10/02/18 Discharge Plan Patient Name: MYRA MICHAEL [facility] [facility] 1935 Planned Disposition: Anticipated Discharge Date: Discharge Date: Expected LOS: Initial Reviewer: [email or web address] Initial Review Date: 10/02/2018 Generated: 10/02/18 5:21 pm DCPIA - Discharge Planning Initial Assessment Updated by [email or web address]: Marcy Bowers on 10/02/18 4:20 pm * Is the patient Alert and Oriented? Yes * How many steps to enter\exit or inside your home? * PCP [facility] * Pharmacy [facility] * Preadmission Environment Home with Family * ADLs Independent * Other Equipment walker, wheelchair * List name and contact numbers for known caregivers / representatives who currently or will assist patient after discharge: Mehreen Michael - [facility]- [phone] * Verbal permission to speak to the caregivers and representatives has been obtained from the patient. Yes * Community resources currently utilized None * Additional services required to return to the preadmission environment? No * Can the patient safely return to the preadmission environment? Yes * Has this patient been hospitalized within the prior 30 days at any hospital? Yes Patient Name: MYRA MICHAEL Page 39297 at 1621 All edits/amendments must be made on the electronic document DICTATION DATE: 10/02/18 162 HELP DESK INTERNSHIP: DORA 10/02/18 162 RPT#: [id number] DC DATE: STATUS: ADM IN [facility] [address] [place] [address] END OF REPORT
--- NOTE | 2018-10-02 16:37 | MORECARE ---
CASE MANAGEMENT DISCHARGE SUMMARY PATIENT: MYRA MICHAEL UNIT: [id number] ADM DATE: 10/02/18 AGE: 83 : 33 SEX: M ROOM/BED: D.2303 AUTHOR: DERRICK,DOC PHYSICIAN: REFERRING PHYSICIAN: JORDAN DANIEL MD DATE OF SERVICE: 10/02/18 Discharge Plan Patient Name: MYRA MICHAEL Facility: [facility]:[place] : 1935 Planned Disposition: Anticipated Discharge Date: Discharge Date: Expected LOS: Initial Reviewer: [email or web address] Initial Review Date: 10/02/2018 Generated: 10/02/18 5:37 pm Comments DCP- Discharge Planning Updated by [email or web address]: Marcy Bowers on 10/02/18 3:[address] Patient Name: MYRA MICHAEL Admission Status: Urgent Accout number: [id number] Admission Date: 10-02-2018 : 1935 Admission Diagnosis: Attending: FREDY, Current LOS: 1 Anticipated DC Date: Planned Disposition: Primary Insurance: MEDICARE A & B Discharge Planning Comments: CM met with patient and spouse at bedside after obtaining consent. Patient was admitted from inpatient rehab d/t increased shortness of breath. Patient states he doesn't know if they plan on him going back to rehab or if he will be able to go home upon discharge. Patient denies any discharge needs at this time. CM will continue to follow and assist as needed with discharge planning/ needs. Gripper Attacher: Marcy Bowers DCPIA - Discharge Planning Initial Assessment Updated by [email or web address]: Marcy Bowres on 10/02/18 4:20 pm * Is the patient Alert and Oriented? Yes * How many steps to enter\exit or inside your home? * PCP Lay [facility] * [facility] * Preadmission Environment Home with Family * ADLs Independent * Other Equipment walker, wheelchair * List name and contact numbers for known caregivers / representatives who currently or will assist patient after discharge: Mehreen Michael - spouse- [phone] * Verbal permission to speak to the caregivers and representatives has been obtained from the patient. Yes * Community resources currently utilized None * Additional services required to return to the preadmission environment? No * Can the patient safely return to the preadmission environment? Yes * Has this patient been hospitalized within the prior 30 days at any hospital? Yes Last DP export: 10/02/18 3:21 p Patient Name: MYRA MICHAEL Page 66951 at 1637 All edits/amendments must be made on the electronic document DICTATION DATE: 10/02/181636 BOOT AND SADDLE REPAIR PERSON: DORA 10/02/181636 RPT#: [id number] DC DATE: STATUS: ADM IN [facility] [address] [place] [address] END OF REPORT
--- NOTE | 2018-10-02 17:33 | HP ---
PATIENT: MYRA MICHAEL MEDICAL RECORD: [id number] ACCOUNT: [id number] LOCATION:[facility] D.2303 : [birth year] ADMISSION DATE: 10/02/18 PCP: MAY GUZMAN MD HISTORY AND PHYSICAL EXAMINATION HISTORY OF PRESENT ILLNESS: Mr. Michael is an 83-year-old white male that recently underwent a pacemaker for third-degree heart block, was admitted to the rehab unit on September 25. He has been having some troubles with oxygenation and some shortness of breath, was seen in repeat consultation by cardiology yesterday due to a slightly elevated troponin, which was felt to be secondary to his recent procedure. He has also been having some slight worsening of his renal insufficiency. This morning, he was noted to have sats in the 60s-80s with some respiratory distress. It was felt that he may be at risk for PE due to his recent inactivity. He does have some confusion and denies any shortness of breath at this time. Nurses report he was dyspneic earlier. HE HAS AN ALLERGY TO IV DYE. He is going to be admitted to rule out pulmonary embolism. PAST MEDICAL HISTORY: Significant for previous CVA, TIA, coronary artery disease, hypertension, sleep apnea, prostate cancer, GERD, generalized weakness, back problems, hyperlipidemia, recent third-degree heart block, diabetes. ALLERGIES: IV CONTRAST, ADHESIVES, IODINE AND TORADOL. PAST SURGICAL HISTORY: Include recent permanent pacemaker placement, angioplasty, mastoid surgery, adenoids, tonsillectomy, herniated disc repair, arthroscopies, cataracts, knee replacement, laminectomy, and posterior spinal fusion. MEDICATIONS: Please see previous H and P's in MAR for past and previous meds. FAMILY HISTORY: Unchanged. SOCIAL HISTORY: Unchanged. REVIEW OF SYSTEMS: Nurses report the patient is confused. He does answer my questions. He is in no distress at this time. He denies any chest pain or shortness of breath. Again earlier, he was quite dyspneic. PHYSICAL EXAMINATION: GENERAL: Elderly male, currently on oxygen, who appears to be comfortable with his breathing at this time. HEART: Regular. LUNGS: With some diminished breath sounds. ABDOMEN: Soft. EXTREMITIES: Lower extremities reveal edema. IMPRESSION: 1. Hypoxia. 2. Recent permanent pacemaker placement secondary to third degree arteriovenous block. 3. Coronary artery disease. 4. History of previous cerebrovascular accident, history of transient ischemic attack, diabetes, generalized weakness, history of prostate cancer, gastroesophageal reflux disease, hypertension. HISTORY AND PHYSICAL [id number] MYRA MICHAEL PLAN: Admit ICU. We will get a VQ scan since he has listed a history of IV dye, adequate oxygenation. Pulmonary consult. Reviewed chart. A recent echo showed a normal EF. Recheck chest x-ray. Cycle enzymes. See orders for rest of plan. TRANSINT:[id number] Voice Confirmation ID: [id number] DOCUMENT ID: [id number] MIKE MOON DO at 1733 CC: [id number] DICTATION DATE: 10/02/18 1154 ASSISTANT PROFESSOR OF GEOGRAPHY: 10/02/18 1230 ADM IN [place] [address] [place] [address]
[2018-10-03] VITALS (23 sets, daily range): BP systolic 122–168; BP diastolic 47–105; Ht 188 cm; Wt 108.4 kg
[2018-10-03 04:25] LABS: BASOPHILS 0 % (0-2); EOSINOPHILS 0.1 % (0-7); HEMATOCRIT 29.5 % (42.0-54.0); HEMOGLOBIN 9.1 g/dL (13.5-17.5); IMMATURE GRANULOCYTES 0.7 % (0-5); LYMPHOCYTES 3.1 % (15-50); MCH 33.2 pg (26.0-34.0); MCHC 30.8 g/dL (31.0-37.0); MCV 107.7 fL (80.0-100.0); MEAN PLATELET VOLUME 11.4 fL (7.4-10.4); NEUTROPHILS 95.1 % (40-80); PLATELET COUNT 260 10x3/uL (130-400); RBC 2.74 10x6/uL (4.20-6.10); RDW 14.8 % (11.5-14.5)
[2018-10-03 04:28] LABS: WBC 13.4 10x3/uL (4.8-10.8)
[2018-10-03 04:39] LABS: ALBUMIN 2.1 g/dL (3.4-5.0); ANION GAP 11.2 mmol/L (8-16); BILIRUBIN - TOTAL 0.46 mg/dL (0.2-1.3); CALCIUM 10.4 mg/dL (8.5-10.1); CARBON DIOXIDE 31.5 mmol/L (21.0-32.0); CREATININE - SERUM 1.4 mg/dL (0.6-1.3); POTASSIUM - SERUM 4.7 mmol/L (3.5-5.1); PROTEIN - SERUM 6.3 g/dL (6.4-8.2)
[2018-10-04] VITALS (15 sets, daily range): BP systolic 129–159; BP diastolic 51–76
[2018-10-04 03:56] LABS: BASOPHILS 0.1 % (0-2); EOSINOPHILS 0.1 % (0-7); HEMATOCRIT 28.4 % (42.0-54.0); HEMOGLOBIN 8.8 g/dL (13.5-17.5); IMMATURE GRANULOCYTES 0.6 % (0-5); LYMPHOCYTES 3.9 % (15-50); MCH 33.2 pg (26.0-34.0); MCV 107.2 fL (80.0-100.0); MEAN PLATELET VOLUME 11.4 fL (7.4-10.4); MONOCYTES 6.8 % (2-11); NEUTROPHILS 88.5 % (40-80); PLATELET COUNT 274 10x3/uL (130-400); RBC 2.65 10x6/uL (4.20-6.10); RDW 14.7 % (11.5-14.5); WBC 15.6 10x3/uL (4.8-10.8)
[2018-10-04 04:19] LABS: BILIRUBIN - TOTAL 0.44 mg/dL (0.2-1.3); CALCIUM 10.5 mg/dL (8.5-10.1); CARBON DIOXIDE 30.2 mmol/L (21.0-32.0); CREATININE - SERUM 1.7 mg/dL (0.6-1.3); PROTEIN - SERUM 6.1 g/dL (6.4-8.2)
[2018-10-04 04:21] LABS: ANION GAP 9.6 mmol/L (8-16); POTASSIUM - SERUM 3.8 mmol/L (3.5-5.1)
[2018-10-05] VITALS: BP 138/59
[2018-10-05 04:00] VITALS: BP 146/60
[2018-10-05 05:26] LABS: BASOPHILS 0.1 % (0-2); EOSINOPHILS 1.3 % (0-7); HEMATOCRIT 26.4 % (42.0-54.0); HEMOGLOBIN 8.1 g/dL (13.5-17.5); IMMATURE GRANULOCYTES 1.5 % (0-5); LYMPHOCYTES 8.5 % (15-50); MCH 32.7 pg (26.0-34.0); MCHC 30.7 g/dL (31.0-37.0); MCV 106.5 fL (80.0-100.0); MEAN PLATELET VOLUME 10.5 fL (7.4-10.4); NEUTROPHILS 79.6 % (40-80); PLATELET COUNT 256 10x3/uL (130-400); RBC 2.48 10x6/uL (4.20-6.10); RDW 14.9 % (11.5-14.5)
[2018-10-05 05:38] LABS: WBC 9.8 10x3/uL (4.8-10.8)
[2018-10-05 05:49] LABS: ANION GAP 8.7 mmol/L (8-16); CALCIUM 9.8 mg/dL (8.5-10.1); CARBON DIOXIDE 31.1 mmol/L (21.0-32.0); CREATININE - SERUM 1.8 mg/dL (0.6-1.3); POTASSIUM - SERUM 3.8 mmol/L (3.5-5.1)
[2018-10-05 07:57] VITALS: BP 139/43
[2018-10-05 20:06] LABS: ACID FAST SMEAR Negative (()); AFB SPECIMEN PROCESSING Concentration (())
[2018-10-06 07:06] LABS: BASOPHILS 0.3 % (0-2); EOSINOPHILS 2.8 % (0-7); HEMATOCRIT 27.6 % (42.0-54.0); HEMOGLOBIN 8.5 g/dL (13.5-17.5); LYMPHOCYTES 11.8 % (15-50); MCH 32.8 pg (26.0-34.0); MCHC 30.8 g/dL (31.0-37.0); MCV 106.6 fL (80.0-100.0); MEAN PLATELET VOLUME 11.1 fL (7.4-10.4); MONOCYTES 10.8 % (2-11); NEUTROPHILS 71.3 % (40-80); PLATELET COUNT 274 10x3/uL (130-400); RBC 2.59 10x6/uL (4.20-6.10); RDW 14.6 % (11.5-14.5)
[2018-10-06 07:16] LABS: WBC 6.8 10x3/uL (4.8-10.8)
[2018-10-06 07:25] LABS: ANION GAP 10.8 mmol/L (8-16); CALCIUM 10.1 mg/dL (8.5-10.1); CARBON DIOXIDE 30.9 mmol/L (21.0-32.0); CREATININE - SERUM 1.7 mg/dL (0.6-1.3); POTASSIUM - SERUM 3.7 mmol/L (3.5-5.1); VANCOMYCIN - RANDOM 16.1 ug/mL (10.0-20.0)
[2018-10-06 08:00] VITALS: BP 148/65
[2018-10-06 12:00] VITALS: BP 133/73
[2018-10-06] MEDS ORDERED: ICAPS PO (17:06)
[2018-10-06] MEDS ORDERED: PREDNISOLONE 110 ML EACH EYE (17:06)
[2018-10-06] MEDS ORDERED: KENALOG 0.1 % 115 GM TOPICAL (17:07)
[2018-10-06 20:39] VITALS: BP 174/51
[2018-10-07 00:35] VITALS: BP 123/43
[2018-10-07 04:46] VITALS: BP 133/49
[2018-10-07 07:48] LABS: BASOPHILS 0.3 % (0-2); EOSINOPHILS 2.7 % (0-7); HEMATOCRIT 27.2 % (42.0-54.0); HEMOGLOBIN 8.3 g/dL (13.5-17.5); IMMATURE GRANULOCYTES 2.7 % (0-5); LYMPHOCYTES 15.9 % (15-50); MCH 32.5 pg (26.0-34.0); MCHC 30.5 g/dL (31.0-37.0); MCV 106.7 fL (80.0-100.0); MONOCYTES 9.4 % (2-11); PLATELET COUNT 275 10x3/uL (130-400); RBC 2.55 10x6/uL (4.20-6.10); RDW 14.8 % (11.5-14.5); WBC 7.8 10x3/uL (4.8-10.8)
[2018-10-07 08:08] VITALS: BP 136/51
[2018-10-07 08:17] LABS: ANION GAP 11.1 mmol/L (8-16); CALCIUM 9.7 mg/dL (8.5-10.1); CARBON DIOXIDE 30.7 mmol/L (21.0-32.0); CREATININE - SERUM 1.6 mg/dL (0.6-1.3); POTASSIUM - SERUM 3.8 mmol/L (3.5-5.1); VANCOMYCIN - RANDOM 11.8 ug/mL (10.0-20.0)
[2018-10-07 12:16] VITALS: BP 142/65
[2018-10-07 14:14] LABS: FUNGUS STAIN Final report (())
[2018-10-07 17:21] VITALS: BP 137/51
[2018-10-08 01:32] VITALS: BP 132/55
[2018-10-08 04:00] VITALS: BP 123/57
[2018-10-08 06:57] LABS: BASOPHILS 0.2 % (0-2); EOSINOPHILS 3.5 % (0-7); HEMATOCRIT 26.1 % (42.0-54.0); IMMATURE GRANULOCYTES 2.2 % (0-5); LYMPHOCYTES 12.2 % (15-50); MCH 32.8 pg (26.0-34.0); MCHC 30.7 g/dL (31.0-37.0); MEAN PLATELET VOLUME 11.1 fL (7.4-10.4); NEUTROPHILS 73.9 % (40-80); PLATELET COUNT 294 10x3/uL (130-400); RBC 2.44 10x6/uL (4.20-6.10); RDW 14.7 % (11.5-14.5); WBC 8.1 10x3/uL (4.8-10.8)
[2018-10-08 07:06] LABS: ANION GAP 8.5 mmol/L (8-16); CALCIUM 9.3 mg/dL (8.5-10.1); CARBON DIOXIDE 32.9 mmol/L (21.0-32.0); CREATININE - SERUM 1.7 mg/dL (0.6-1.3); POTASSIUM - SERUM 3.4 mmol/L (3.5-5.1); VANCOMYCIN - RANDOM 12.6 ug/mL (10.0-20.0)
[2018-10-08 08:32] VITALS: BP 115/33
[2018-10-08 12:17] LABS: FOLATE (FOLIC ACID) - SERUM 9.1 ng/mL (>3.0)
--- NOTE | 2018-10-08 14:35 | MORECARE ---
CASE MANAGEMENT DISCHARGE SUMMARY PATIENT: MYRA MICHAEL UNIT: [id number] ADM DATE: 10/02/18 AGE: 83 : 33 SEX: M ROOM/BED: D.1207 AUTHOR: DERRICK,DOC PHYSICIAN: REFERRING PHYSICIAN: JORDAN DANIEL MD DATE OF SERVICE: 10/08/18 Discharge Plan Patient Name: MYRA MICHAEL Facility: [facility]:[place] : 1935 Planned Disposition: Anticipated Discharge Date: Discharge Date: Expected LOS: Initial Reviewer: [id number] Initial Review Date: 10/02/2018 Generated: 10/08/18 3:35 pm Comments DCP- Discharge Planning Updated by [email or web address]: Marcy Bowers on 10/02/18 3:[address] Patient Name: MYRA MICHAEL Admission Status: Urgent Accout number: [id number] Admission Date: 10-02-2018 : 1935 Admission Diagnosis: Attending: FREDY, Current LOS: 1 Anticipated DC Date: Planned Disposition: Primary Insurance: MEDICARE A & B Discharge Planning Comments: CM met with patient and spouse at bedside after obtaining consent. Patient was admitted from inpatient rehab d/t increased shortness of breath. Patient states he doesn't know if they plan on him going back to rehab or if he will be able to go home upon discharge. Patient denies any discharge needs at this time. CM will continue to follow and assist as needed with discharge planning/ needs. Reimbursement Analyst: Marcy Bowers DCPIA - Discharge Planning Initial Assessment Updated by [email or web address]: Marcy Bowers on 10/02/18 4:20 pm * Is the patient Alert and Oriented? Yes * How many steps to enter\exit or inside your home? * [facility] * Preadmission Environment Home with Family * ADLs Independent * Other Equipment walker, wheelchair * List name and contact numbers for known caregivers / representatives who currently or will assist patient after discharge: Mehreen Michael - spouse- [phone] * Verbal permission to speak to the caregivers and representatives has been obtained from the patient. Yes * Community resources currently utilized None * Additional services required to return to the preadmission environment? No * Can the patient safely return to the preadmission environment? Yes * Has this patient been hospitalized within the prior 30 days at any hospital? Yes External Providers External Provider: Phill Garzon [facility] Next Contact Date: Service Request Date: Service Type: Resolution: Reviewer: Comments: Coverage Notice Reviewer: [email or web address] Haile Trinh Notice Issued Date-Time: 10/08/2018 14:26 Notice Type: Patient Choice Letter Notice Delivered To: Family Member Relationship to Patient: Spouse Welding Lead Burner Name: Delivery Method: HAND - Hand Delivered Farhana Days: Prior Verbal Notification: Recipient Understood Notice: Yes Recipient Signature: Yes Med Rec Note Co-signed by Attending: Coverage Notice Comment: DEJA STEELE export: 10/02/18 3:37 p Patient Name: MYRA MICHAEL Page 53085 at 1435 All edits/amendments must be made on the electronic document DICTATION DATE: 10/08/18 1435 AUTO BODY BUILDER APPRENTICE: DORA 10/08/18 1435 RPT#: [id number] DC DATE: STATUS: ADM IN [facility] [address] [place] [address] END OF REPORT
--- NOTE | 2018-10-08 14:44 | MORECARE ---
CASE MANAGEMENT DISCHARGE SUMMARY PATIENT: MYRA MICHAEL UNIT: [id number] ADM DATE: 10/02/18 AGE: 83 : 33 SEX: M ROOM/BED: D.1207 AUTHOR: DERRICK,DOC PHYSICIAN: REFERRING PHYSICIAN: JORDAN DANIEL MD DATE OF SERVICE: 10/08/18 Discharge Plan Patient Name: MYRA MICHAEL Facility: [facility]:[place] : 1935 Planned Disposition: Anticipated Discharge Date: Discharge Date: Expected LOS: Initial Reviewer: [email or web address] Initial Review Date: 10/02/2018 Generated: 10/08/18 3:44 pm Comments DCP- Discharge Planning Updated by [email or web address]: Yesenia Trinh on 10/08/18 1:[address] Patient Name: MYRA MICHAEL Admission Status: Urgent Accout number: [id number] Admission Date: 10-02-2018 : 1935 Admission Diagnosis:HYPOXEMIA Attending: FREDY, Current LOS: 6 Anticipated DC Date: Planned Disposition: Primary Insurance: MEDICARE A & B Discharge Planning Comments: CM SPOKE WITH PATIENT'S , DANTE FILLED OUT FOR [facility]. REFERRAL DOCUMENTS FAXED TO [phone] AND CALLED [phone]. I LEFT A VM AND AM AWAITING CALL BACK FROM SNF. CM WILL FOLLOW AND ASSIST NEEDED . School Crossing Guard: Yesenia Trinh DCP- Discharge Planning Updated by [email or web address]: Marcy Bowers on 10/02/18 3:[address] Patient Name: MYRA MICHAEL Admission Status: Urgent Accout number: [id number] Admission Date: 10-02-2018 : 1935 Admission Diagnosis: Attending: FREDY, Current LOS: 1 Anticipated DC Date: Planned Disposition: Primary Insurance: MEDICARE A & B Discharge Planning Comments: CM met with patient and spouse at bedside after obtaining consent. Patient was admitted from inpatient rehab d/t increased shortness of breath. Patient states he doesn't know if they plan on him going back to rehab or if he will be able to go home upon discharge. Patient denies any discharge needs at this time. CM will continue to follow and assist as needed with discharge planning/ needs. School Crossing Guard: Marcy MARKHAMA - Discharge Planning Initial Assessment Updated by [email or web address]: Marcy Bowers on 10/02/18 4:20 pm * Is the patient Alert and Oriented? Yes * How many steps to enter\exit or inside your home? * PCP [facility] * [facility] * Preadmission Environment Home with Family * ADLs Independent * Other Equipment walker, wheelchair * List name and contact numbers for known caregivers / representatives who currently or will assist patient after discharge: Mehreen Michael - spouse- [phone] * Verbal permission to speak to the caregivers and representatives has been obtained from the patient. Yes * Community resources currently utilized None * Additional services required to return to the preadmission environment? No * Can the patient safely return to the preadmission environment? Yes * Has this patient been hospitalized within the prior 30 days at any hospital? Yes Coverage Notice Reviewer: [email or web address] Haile Trinh Notice Issued Date-Time: 10/08/2018 14:26 Notice Type: Patient Choice Letter Notice Delivered To: Family Member Relationship to Patient: Spouse Integrated Circuit Design Engineer Name: Delivery Method: HAND - Hand Delivered Farhana Days: Prior Verbal Notification: Recipient Understood Notice: Yes Recipient Signature: Yes Med Rec Note Co-signed by Attending: Coverage Notice Comment: DEJA Watters DP export: 10/08/18 1:35 p Patient Name: MYRA MICHAEL Page 62451 at 1444 All edits/amendments must be made on the electronic document DICTATION DATE: 10/08/18 144 PLANT MAINTENANCE MANAGER: DORA 10/08/18 1443 RPT#: [id number] DC DATE: STATUS: ADM IN [facility] [address] [facility] [place] [address] END OF REPORT
[2018-10-08 20:14] VITALS: BP 134/50
[2018-10-09] VITALS: BP 128/48
[2018-10-09 04:00] VITALS: BP 142/52
[2018-10-09 07:21] LABS: BASOPHILS 0.2 % (0-2); EOSINOPHILS 3.2 % (0-7); HEMATOCRIT 26.5 % (42.0-54.0); HEMOGLOBIN 8.1 g/dL (13.5-17.5); IMMATURE GRANULOCYTES 3.4 % (0-5); MCH 32.8 pg (26.0-34.0); MCHC 30.6 g/dL (31.0-37.0); MCV 107.3 fL (80.0-100.0); MEAN PLATELET VOLUME 10.8 fL (7.4-10.4); MONOCYTES 7.2 % (2-11); PLATELET COUNT 285 10x3/uL (130-400); RBC 2.47 10x6/uL (4.20-6.10); RDW 14.8 % (11.5-14.5); WBC 9.1 10x3/uL (4.8-10.8)
[2018-10-09 07:44] LABS: ANION GAP 11.7 mmol/L (8-16); CALCIUM 9.7 mg/dL (8.5-10.1); CARBON DIOXIDE 30.7 mmol/L (21.0-32.0); CREATININE - SERUM 1.8 mg/dL (0.6-1.3); POTASSIUM - SERUM 3.4 mmol/L (3.5-5.1)
[2018-10-09] MEDS ORDERED: LASIX20 MG PO (09:10)
[2018-10-09] MEDS ORDERED: POTASSIUM CHLO10 ME1 PO (09:10)
[2018-10-09] MEDS ORDERED: MEGACE400 MG/10 PO (09:10)
--- NOTE | 2018-10-09 10:17 | MORECARE ---
CASE MANAGEMENT DISCHARGE SUMMARY PATIENT: MYRA MICHAEL UNIT: [id number] ADM DATE: 10/02/18 AGE: 83 : 33 SEX: M ROOM/BED: D.1207 AUTHOR: DERRICK,DOC PHYSICIAN: REFERRING PHYSICIAN: JORDAN DANIEL MD DATE OF SERVICE: 10/09/18 Discharge Plan Patient Name: MYRA MICHAEL Facility: [facility]:[place] : 1935 Planned Disposition: Anticipated Discharge Date: Discharge Date: Expected LOS: Initial Reviewer: [id number] Initial Review Date: 10/02/2018 Generated: 10/09/18 11:17 am Comments DCP- Discharge Planning Updated by [id number]: Yesenia Trinh on 10/09/18 9:[address] Patient Name: MYRA MICHAEL Admission Status: Urgent Accout number: [id number] Admission Date: 10-02-2018 : 1935 Admission Diagnosis:HYPOXEMIA Attending: FREDY, Current LOS: 7 Anticipated DC Date: Planned Disposition: Primary Insurance: MEDICARE A & B Discharge Planning Comments: CM SPOKE WITH DURAN AT [facility], UDATED DOCUMENTS SENT. WAITING FOR [facility] TO CALL BACK, HOPEFULLY THEY CAN ACCEPT PATIENT TODAY. Service Delivery Manager: Yesenia Trinh DCP- Discharge Planning Updated by [email or web address]: Yesenia Trinh on 10/08/18 1:[address] Patient Name: MYRA MICHAEL Admission Status: Urgent Accout number: [id number] Admission Date: 10-02-2018 : 1935 Admission Diagnosis:HYPOXEMIA Attending: FREDY, Current LOS: 6 Anticipated DC Date: Planned Disposition: Primary Insurance: MEDICARE A & B Discharge Planning Comments: CM SPOKE WITH PATIENT'S , DANTE FILLED OUT FOR [facility]. REFERRAL DOCUMENTS FAXED TO [phone] AND CALLED [phone]. I LEFT A VM AND AM AWAITING CALL BACK FROM SNF. CM WILL FOLLOW AND ASSIST NEEDED . Service Delivery Manager: Yesenia Trinh DCP- Discharge Planning Updated by [id number]: Marcy Bowers on 10/02/18 3:[address] Patient Name: MYRA MICHAEL Admission Status: Urgent Accout number: [id number] Admission Date: 10-02-2018 : 1935 Admission Diagnosis: Attending: FREDY, Current LOS: 1 Anticipated DC Date: Planned Disposition: Primary Insurance: MEDICARE A & B Discharge Planning Comments: CM met with patient and spouse at bedside after obtaining consent. Patient was admitted from inpatient rehab d/t increased shortness of breath. Patient states he doesn't know if they plan on him going back to rehab or if he will be able to go home upon discharge. Patient denies any discharge needs at this time. CM will continue to follow and assist as needed with discharge planning/ needs. Service Delivery Manager: Marcy Bowers DCPIA - Discharge Planning Initial Assessment Updated by [email or web address]: Marcy Bowers on 10/02/18 4:20 pm * Is the patient Alert and Oriented? Yes * How many steps to enter\exit or inside your home? * PCP [facility] * [facility] * Preadmission Environment Home with Family * ADLs Independent * Other Equipment walker, wheelchair * List name and contact numbers for known caregivers / representatives who currently or will assist patient after discharge: Mehreen Michael - spouse- [phone] * Verbal permission to speak to the caregivers and representatives has been obtained from the patient. Yes * Community resources currently utilized None * Additional services required to return to the preadmission environment? No * Can the patient safely return to the preadmission environment? Yes * Has this patient been hospitalized within the prior 30 days at any hospital? Yes Coverage Notice Reviewer: [id number] Haile Trinh Notice Issued Date-Time: 10/08/2018 14:26 Notice Type: Patient Choice Letter Notice Delivered To: Family Member Relationship to Patient: Spouse Cardiology Manager Name: Delivery Method: HAND - Hand Delivered Farhana Days: Prior Verbal Notification: Recipient Understood Notice: Yes Recipient Signature: Yes Med Rec Note Co-signed by Attending: Coverage Notice Comment: DEJA Watters DP export: 10/08/18 1:44 p Patient Name: MYRA MICHAEL Page [phone] at 1017 All edits/amendments must be made on the electronic document DICTATION DATE: 10/09/18 1016 METAL TRIM ERECTOR: DORA 10/09/18 1016 RPT#: [id number] DC DATE: STATUS: ADM IN [facility] [address] [place] [address] END OF REPORT
--- NOTE | 2018-10-09 10:44 | MORECARE ---
CASE MANAGEMENT DISCHARGE SUMMARY PATIENT: MYRA MICHAEL UNIT: [id number] ADM DATE: 10/02/18 AGE: 83 : 33 SEX: M ROOM/BED: D.1207 AUTHOR: DAVE MEZA PHYSICIAN: REFERRING PHYSICIAN: JORDAN DANIEL MD DATE OF SERVICE: 10/09/18 Discharge Plan Patient Name: MYRA MICHAEL Facility: [facility]:[place] : 1935 Planned Disposition: Residential Facility Anticipated Discharge Date: Discharge Date: Expected LOS: Initial Reviewer: [id number] Initial Review Date: 10/02/2018 Generated: 10/09/18 11:44 am Comments DCP- Discharge Planning Updated by [id number]: Yesenia Trinh on 10/09/18 9:[address] Patient Name: MYRA MICHAEL Admission Status: Urgent Accout number: [id number] Admission Date: 10-02-2018 : 1935 Admission Diagnosis:HYPOXEMIA Attending: FREDY, Current LOS: 7 Anticipated DC Date: Planned Disposition: Residential Facility Primary Insurance: MEDICARE A & B Discharge Planning Comments: CM SPOKE WITH PATIENT'S TO LET HER KNOW HE IS ACCEPTED AT [facility]. SHE IS BRINGING HIM CLOTHES. PAU AT [facility] TO CALL ME BACK WITH WHAT TIME THE PERSONALIZED LIVING ASSISTANT IS COMING TO REFRIGERATION PLANT CORK INSULATOR. HER NUMBER IS [phone]. IM SIGNED. CM WILL FOLLOW AND ASSIST. Forest Technician: Yesenia Trinh DCP- Discharge Planning Updated by [email or web address]: Yesenia Trinh on 10/09/18 9:[address] Patient Name: MYRA MICHAEL Admission Status: Urgent Accout number: [id number] Admission Date: 10-02-2018 : 1935 Admission Diagnosis:HYPOXEMIA Attending: FREDY, Current LOS: 7 Anticipated DC Date: Planned Disposition: Primary Insurance: MEDICARE A & B Discharge Planning Comments: CM SPOKE WITH DURAN AT [facility], UDATED DOCUMENTS SENT. WAITING FOR [facility] TO CALL BACK, HOPEFULLY THEY CAN ACCEPT PATIENT TODAY. Forest Technician: Yesenia Trinh DCP- Discharge Planning Updated by [id number]: Yesenia Trinh on 10/08/18 1:[address] Patient Name: MYRA MICHAEL Admission Status: Urgent Accout number: [id number] Admission Date: 10-02-2018 : 1935 Admission Diagnosis:HYPOXEMIA Attending: FREDY, Current LOS: 6 Anticipated DC Date: Planned Disposition: Primary Insurance: MEDICARE A & B Discharge Planning Comments: CM SPOKE WITH PATIENT'S , DANTE FILLED OUT FOR [facility]. REFERRAL DOCUMENTS FAXED TO [phone] AND CALLED [phone]. I LEFT A VM AND AM AWAITING CALL BACK FROM SNF. CM WILL FOLLOW AND ASSIST NEEDED . Forest Technician: Yesenia Trinh DCP- Discharge Planning Updated by [email or web address]: Marcy Bowers on 10/02/18 3:[address] Patient Name: MYRA MICHEAL Admission Status: Urgent Accout number: [id number] Admission Date: 10-02-2018 : 1935 Admission Diagnosis: Attending: FREDY, Current LOS: 1 Anticipated DC Date: Planned Disposition: Primary Insurance: MEDICARE A & B Discharge Planning Comments: CM met with patient and spouse at bedside after obtaining consent. Patient was admitted from inpatient rehab d/t increased shortness of breath. Patient states he doesn't know if they plan on him going back to rehab or if he will be able to go home upon discharge. Patient denies any discharge needs at this time. CM will continue to follow and assist as needed with discharge planning/ needs. Forest Technician: Marcy Bowers DCPIA - Discharge Planning Initial Assessment Updated by [id number]: Marcy Bowers on 10/02/18 4:20 pm * Is the patient Alert and Oriented? Yes * How many steps to enter\exit or inside your home? * PCP [facility] * [facility] * Preadmission Environment Home with Family * ADLs Independent * Other Equipment walker, wheelchair * List name and contact numbers for known caregivers / representatives who currently or will assist patient after discharge: Mehreen Michael - spouse- [phone] * Verbal permission to speak to the caregivers and representatives has been obtained from the patient. Yes * Community resources currently utilized None * Additional services required to return to the preadmission environment? No * Can the patient safely return to the preadmission environment? Yes * Has this patient been hospitalized within the prior 30 days at any hospital? Yes Coverage Notice Reviewer: [id number] Haile Trinh Notice Issued Date-Time: 10/08/2018 14:26 Notice Type: Patient Choice Letter Notice Delivered To: Family Member Relationship to Patient: Spouse Dynamotor Repairer Name: Delivery Method: HAND - Hand Delivered Farhana Days: Prior Verbal Notification: Recipient Understood Notice: Yes Recipient Signature: Yes Med Rec Note Co-signed by Attending: Coverage Notice Comment: DEJA MACEDO Reviewer: [id number] Haile Trinh Notice Issued Date-Time: 10/09/2018 10:41 Notice Type: IM Discharge Notice Notice Delivered To: Patient Relationship to Patient: Self Dynamotor Repairer Name: Delivery Method: HAND - Hand Delivered Farhana Days: Prior Verbal Notification: Recipient Understood Notice: Yes Recipient Signature: Yes Med Rec Note Co-signed by Attending: Coverage Notice Comment: Last DP export: 10/09/18 9:17 a Patient Name: MYRA MICHAEL Page 27916 at 1044 All edits/amendments must be made on the electronic document DICTATION DATE: 10/09/18 1044 PURCHASE REQUEST EDITOR: DORA 10/09/18 1044 RPT#: [id number] DC DATE: STATUS: ADM IN [facility] [address] [place] [address] END OF REPORT
[2018-10-09 11:05] VITALS: BP 159/63
--- NOTE | 2018-10-09 14:20 | MORECARE ---
CASE MANAGEMENT DISCHARGE SUMMARY PATIENT: MYRA MICHAEL UNIT: [id number] ADM DATE: 10/02/18 AGE: 83 : 33 SEX: M ROOM/BED: D.1207 AUTHOR: DAVE MEZA PHYSICIAN: REFERRING PHYSICIAN: JORDAN DANIEL MD DATE OF SERVICE: 10/09/18 Discharge Plan Patient Name: MYRA MICHAEL Facility: [facility]:[place] : 1935 Planned Disposition: Care Home Facility Anticipated Discharge Date: 10/09/18 Discharge Date: 10/09/2018 Expected LOS: 7 Initial Reviewer: [id number] Initial Review Date: 10/02/2018 Generated: 10/09/18 3:20 pm Comments DCP- Discharge Planning Updated by [id number]: Yesenia Trinh on 10/09/18 9:[address] Patient Name: MYRA MICHAEL Admission Status: Urgent Accout number: [id number] Admission Date: 10-02-2018 : 1935 Admission Diagnosis:HYPOXEMIA Attending: FREDY, Current LOS: 7 Anticipated DC Date: Planned Disposition: Care Home Facility Primary Insurance: MEDICARE A & B Discharge Planning Comments: CM SPOKE WITH PATIENT'S TO LET HER KNOW HE IS ACCEPTED AT [facility]. SHE IS BRINGING HIM CLOTHES. PAU AT [facility] TO CALL ME BACK WITH WHAT TIME THE RECRUITMENT CONSULTANT IS COMING TO PAINTER SIGN MAINTENANCE. HER NUMBER IS [phone]. IM SIGNED. CM WILL FOLLOW AND ASSIST. Fell Cutter: Yesenia Trinh DCP- Discharge Planning Updated by [id number]: Yesenia Trinh on 10/09/18 9:[address] Patient Name: MYRA MICHAEL Admission Status: Urgent Accout number: [id number] Admission Date: 10-02-2018 : 1935 Admission Diagnosis:HYPOXEMIA Attending: FREDY, Current LOS: 7 Anticipated DC Date: Planned Disposition: Primary Insurance: MEDICARE A & B Discharge Planning Comments: CM SPOKE WITH DURAN AT [facility], UDATED DOCUMENTS SENT. WAITING FOR [facility] TO CALL BACK, HOPEFULLY THEY CAN ACCEPT PATIENT TODAY. Fell Cutter: Yesenia Trinh DCP- Discharge Planning Updated by [id number]: Yesenia Trinh on 10/08/18 1:[address] Patient Name: MYRA MICHAEL Admission Status: Urgent Accout number: [id number] Admission Date: 10-02-2018 : 1935 Admission Diagnosis:HYPOXEMIA Attending: FREDY, Current LOS: 6 Anticipated DC Date: Planned Disposition: Primary Insurance: MEDICARE A & B Discharge Planning Comments: CM SPOKE WITH PATIENT'S , DANTE FILLED OUT FOR [facility] SNF. REFERRAL DOCUMENTS FAXED TO [phone] AND CALLED [phone]. I LEFT A VM AND AM AWAITING CALL BACK FROM SNF. CM WILL FOLLOW AND ASSIST NEEDED . Fell Cutter: Yesenia Gayathri DCP- Discharge Planning Updated by [id number]: Marcy Bowers on 10/02/18 3:[address] Patient Name: MYRA MICHAEL Admission Status: Urgent Accout number: [id number] Admission Date: 10-02-2018 : 1935 Admission Diagnosis: Attending: FREDY, Current LOS: 1 Anticipated DC Date: Planned Disposition: Primary Insurance: MEDICARE A & B Discharge Planning Comments: CM met with patient and spouse at bedside after obtaining consent. Patient was admitted from inpatient rehab d/t increased shortness of breath. Patient states he doesn't know if they plan on him going back to rehab or if he will be able to go home upon discharge. Patient denies any discharge needs at this time. CM will continue to follow and assist as needed with discharge planning/ needs. Fell Cutter: Marcy Bowers DCPIA - Discharge Planning Initial Assessment Updated by [id number]: Marcy Bowers on 10/02/18 4:20 pm * Is the patient Alert and Oriented? Yes * How many steps to enter\exit or inside your home? * [facility] * Preadmission Environment Home with Family * ADLs Independent * Other Equipment walker, wheelchair * List name and contact numbers for known caregivers / representatives who currently or will assist patient after discharge: Mehreen Michael - spouse- [phone] * Verbal permission to speak to the caregivers and representatives has been obtained from the patient. Yes * Community resources currently utilized None * Additional services required to return to the preadmission environment? No * Can the patient safely return to the preadmission environment? Yes * Has this patient been hospitalized within the prior 30 days at any hospital? Yes Coverage Notice Reviewer: [id number] Haile Trinh Notice Issued Date-Time: 10/08/2018 14:26 Notice Type: Patient Choice Letter Notice Delivered To: Family Member Relationship to Patient: Spouse Educational Aide Name: Delivery Method: HAND - Hand Delivered Farhana Days: Prior Verbal Notification: Recipient Understood Notice: Yes Recipient Signature: Yes Med Rec Note Co-signed by Attending: Coverage Notice Comment: DEJA MACEDO Reviewer: [id number] Haile Trinh Notice Issued Date-Time: 10/09/2018 10:41 Notice Type: IM Discharge Notice Notice Delivered To: Patient Relationship to Patient: Self Educational Aide Name: Delivery Method: HAND - Hand Delivered Farhana Days: Prior Verbal Notification: Recipient Understood Notice: Yes Recipient Signature: Yes Med Rec Note Co-signed by Attending: Coverage Notice Comment: Last DP export: 10/09/18 9:44 a Patient Name: MYRA MICHAEL Page 22966 at 1420 All edits/amendments must be made on the electronic document DICTATION DATE: 10/09/18 1420 SHIPYARD PAINTER APPRENTICE: DORA 10/09/18 1420 RPT#: [id number] DC DATE:10/09/18 STATUS: DIS IN [facility] [address] [place] [address] END OF REPORT
[2018-10-11 16:12] LABS: FUNGUS CULTURE RESULT 1 Candida albicans (()); FUNGUS STAIN RESULT 1 Yeast observed (())
[2018-11-01 12:19] LABS: FUNGUS MYCOLOGY CULTURE Final report (())
== END 2018-10-09 13:25 | DRG 177 ==
LOC: D.ICU 11:03 → D.M3 11:22
PROVIDERS: Family Medicine; ADMIT Family Medicine
PROC: 3E1F88X Irrigation of Respiratory Tract using Irrigating Substance, Via Natural or Artificial Opening Endoscopic, Diagnostic (ICD-10-PCS; principal; 2018-10-03)
DX: J69.0 Pneumonitis due to inhalation of food and vomit (principal); J96.01 Acute respiratory failure with hypoxia; I50.21 Acute systolic (congestive) heart failure; J98.11 Atelectasis; E87.0 Hyperosmolality and hypernatremia; N17.9 Acute kidney failure, unspecified; J90 Pleural effusion, not elsewhere classified; I13.0 Hypertensive heart and chronic kidney disease with heart failure and stage 1 through stage 4 chronic kidney disease, or unspecified chronic kidney disease; J44.1 Chronic obstructive pulmonary disease with (acute) exacerbation; J44.0 Chronic obstructive pulmonary disease with (acute) lower respiratory infection; I25.10 Atherosclerotic heart disease of native coronary artery without angina pectoris; K21.9 Gastro-esophageal reflux disease without esophagitis; Z95.0 Presence of cardiac pacemaker; R53.1 Weakness; G47.33 Obstructive sleep apnea (adult) (pediatric); Z86.73 Personal history of transient ischemic attack (TIA), and cerebral infarction without residual deficits; Z85.46 Personal history of malignant neoplasm of prostate; G72.9 Myopathy, unspecified; Y95 Nosocomial condition; D53.9 Nutritional anemia, unspecified; E11.22 Type 2 diabetes mellitus with diabetic chronic kidney disease; N18.3 Chronic kidney disease, stage 3 (moderate); E11.21 Type 2 diabetes mellitus with diabetic nephropathy

== ENCOUNTER 2018-10-21 19:31 | Inpatient (IN) | payer MEDICARE, BC ==
[~2018-10-21] VITALS: Ht 188 cm; Wt 109.8 kg
[~2018-10-21 19:31] MED LIST changes: +ICAPS PO; +KENALOG 0.1 % 115 GM TOPICAL; +MEGACE400 MG/10 PO; +POTASSIUM CHLO10 ME1 PO; +PREDNISOLONE 110 ML EACH EYE
[2018-10-21] MEDS ORDERED: BAYER CHEWABLE81 MG PO (19:38)
[2018-10-21] MEDS ORDERED: DIFLUCAN150 MG PO (19:38)
[2018-10-21] MEDS ORDERED: IPRAT-ALBUT 0.5-3 ML UPD (19:39)
[2018-10-21] MEDS ORDERED: ULTRAM50 MG PO (19:41)
[2018-10-21] MEDS ORDERED: PHENAZOPYRIDIN100 MG PO (19:42)
[2018-10-21 19:56] LABS: BASOPHILS 0.1 % (0-2); EOSINOPHILS 1.9 % (0-7); HEMATOCRIT 26.8 % (42.0-54.0); HEMOGLOBIN 8.1 g/dL (13.5-17.5); LYMPHOCYTES 13.6 % (15-50); MCHC 30.2 g/dL (31.0-37.0); MCV 105.9 fL (80.0-100.0); MEAN PLATELET VOLUME 10.4 fL (7.4-10.4); MONOCYTES 9.4 % (2-11); PLATELET COUNT 344 10x3/uL (130-400); RBC 2.53 10x6/uL (4.20-6.10); RDW 16.1 % (11.5-14.5); WBC 6.9 10x3/uL (4.8-10.8)
[2018-10-21 20:09] LABS: INR 1.08 (0.85-1.17); PROTIME 13.5 SECONDS (11.6-15.0)
[2018-10-21 20:10] LABS: APTT 38.6 SECONDS (22.8-39.4)
[2018-10-21 20:32] LABS: ALKALINE PHOSPHATASE 122 U/L (46-116); ALT (SGPT) 31 U/L (10-68); BILIRUBIN - TOTAL 0.32 mg/dL (0.2-1.3); CALC OSMOLALITY 302 mosm/kg (275-300); CALCIUM 10.1 mg/dL (8.5-10.1); CARBON DIOXIDE 29.1 mmol/L (21.0-32.0); CHLORIDE - SERUM 110 mmol/L (98-107); CREATININE - SERUM 1.4 mg/dL (0.6-1.3); GLUCOSE 179 mg/dL (74-106); POTASSIUM - SERUM 4.6 mmol/L (3.5-5.1); SODIUM 146 mmol/L (136-145); UREA NITROGEN 34 mg/dL (7-18); eGFR NON AFRICAN AMERICAN 51 mL/min (90-120)
[2018-10-21 20:41] LABS: CKMB 2.2 U/L (0.0-3.6); CREATINE KINASE 86 UL (21-232); PRO BNP 15824 pg/mL (0-450)
[2018-10-21 20:43] LABS: TROPONIN-I 0.928 ng/mL (0.000-0.060)
[2018-10-21 21:41] VITALS: BP 170/76
--- NOTE | 2018-10-21 23:00 | NUR ---
ADMITTED TO ROOM FROM ER ALERT AND ORIENTIATED C/O SHORTNESS OF BREATH O2 IN USE VIA N/C AT 3 L LUNGS WITH RONCHI BILATERAL REPORTS COUGHING UP THICK PHLEM AT BEDSIDE, ORIENTIATED TO ROOM CALL LIGHT IN REACH
--- NOTE | 2018-10-22 00:10 | NUR ---
RT CONNECTED HOME C-PAP RESTING AT THIS TIME
[2018-10-22 00:47] VITALS: BP 155/64; BMI 31.1
[2018-10-22 04:00] VITALS: BP 184/70
[2018-10-22 05:59] LABS: BASOPHILS 0.2 % (0-2); HEMATOCRIT 25.2 % (42.0-54.0); HEMOGLOBIN 7.8 g/dL (13.5-17.5); IMMATURE GRANULOCYTES 1.4 % (0-5); LYMPHOCYTES 18.3 % (15-50); MCH 32.8 pg (26.0-34.0); MCV 105.9 fL (80.0-100.0); MEAN PLATELET VOLUME 10.8 fL (7.4-10.4); MONOCYTES 8.4 % (2-11); NEUTROPHILS 69.7 % (40-80); PLATELET COUNT 369 10x3/uL (130-400); RBC 2.38 10x6/uL (4.20-6.10); RDW 15.9 % (11.5-14.5); WBC 6.6 10x3/uL (4.8-10.8)
[2018-10-22 06:17] LABS: ANION GAP 10.5 mmol/L (8-16); CALCIUM 10.1 mg/dL (8.5-10.1); CARBON DIOXIDE 29.6 mmol/L (21.0-32.0); CREATININE - SERUM 1.3 mg/dL (0.6-1.3); POTASSIUM - SERUM 4.1 mmol/L (3.5-5.1)
--- NOTE | 2018-10-22 08:12 | NUR ---
PT IS RESTING IN BED WITH EYES CLOSED. RESPIRATIONS ARE EVEN AND UNLABORED. O2 VIA NC @ 4L. PT WITH WET SOUNDING FREQUENT COUGH. PT DENIES THAT THE COUGH IS PRODUCTIVE. EXPIRATORY WHEEZES AUSCULTATED THROUGHOUT BILATERAL LOBES. PT DENIES PRESENCE DYSPNEA. PT DENIES PRESENCE OF PAIN AND N/V AT THIS TIME. BED IS IN THE LOWEST POSITION. CALL LIGHT AND BEDSIDE TABLE ARE WITHIN REACH. WILL CONT TO MONITOR.
--- NOTE | 2018-10-22 09:08 | NUR ---
PT ALREADY CONSUMED BREAKFAST THIS AM. PT EDUCATED ON MEANING OF NPO STATUS. PT VERBALIZES UNDERSTANDING. PT DENIES FURTHER QUESTIONS/NEEDS AT THIS TIME.
[2018-10-22 09:15] VITALS: BP 163/59
[2018-10-22 09:46] LABS: CKMB 2.4 U/L (0.0-3.6); CREATINE KINASE 84 UL (21-232)
[2018-10-22 10:57] VITALS: BMI 31.0
--- NOTE | 2018-10-22 11:24 | MORECARE ---
CASE MANAGEMENT DISCHARGE SUMMARY PATIENT: MYRA QUICK UNIT: [id number] ADM DATE: 10/21/18 AGE: 83 : 33 SEX: M ROOM/BED: D.2217 AUTHOR: DAVE MEZA PHYSICIAN: REFERRING PHYSICIAN: DEBBIE CHAMBERS MD DATE OF SERVICE: 10/22/18 Discharge Plan Patient Name: MYRA QUICK [facility] [facility] 1935 Planned Disposition: Anticipated Discharge Date: Discharge Date: Expected LOS: Initial Reviewer: [email or web address] Initial Review Date: 10/21/2018 Generated: 10/22/18 12:24 pm Comments DCP- Discharge Planning Updated by [id number]: Rose Pickett on 10/22/18 10:[address] ATTEMPTED TO SEE PATIENT, HE WAS SLEEPING. WILL REASSESS AT A LATER TIME Patient Name: MYRA QUICK Page 36406 at 1124 All edits/amendments must be made on the electronic document DICTATION DATE: 10/22/18 112 INSTRUCTOR LOOPING: DORA 10/22/18 1123 RPT#: [id number] DC DATE: STATUS: ADM IN [facility] [address] [place] [address] END OF REPORT
[2018-10-22 12:23] LABS: % SATURATION 45 % (15-55); IRON 80 ug/dl (35-150); TOTAL IRON BIND CAPACITY 175 ug/dl (260-445); UNSAT IRON BIND CAPACITY 95 ug/dl (150-375)
--- NOTE | 2018-10-22 12:45 | NUR ---
SPOKE WITH [facility] REGARDING PT ALLERGIES AND ORDERED CT. PER BARB VQ SCAN IS ACCEPTABLE AT THIS TIME. SPENSER WITH CT NOTIFIED OF CHANGE.
--- NOTE | 2018-10-22 13:15 | NUR ---
PT IS OFF FLOOR VIA BED FOR VQ SCAN.
[2018-10-22 13:37] VITALS: BP 139/67
--- NOTE | 2018-10-22 14:05 | MORECARE ---
CASE MANAGEMENT DISCHARGE SUMMARY PATIENT: MYRA QUICK UNIT: [id number] ADM DATE: 10/21/18 AGE: 83 : 33 SEX: M ROOM/BED: D.2217 AUTHOR: DAVE MEZA PHYSICIAN: REFERRING PHYSICIAN: DEBBIE CHAMBERS MD DATE OF SERVICE: 10/22/18 Discharge Plan Patient Name: MYRA QUICK Facility: [facility]:[place] : 1935 Planned Disposition: Care Home Facility Anticipated Discharge Date: Discharge Date: Expected LOS: Initial Reviewer: [email or web address] Initial Review Date: 10/21/2018 Generated: 10/22/18 3:05 pm Comments DCP- Discharge Planning Updated by [id number]: Rose Pickett on 10/22/18 10:[address] ATTEMPTED TO SEE PATIENT, HE WAS SLEEPING. WILL REASSESS AT A LATER TIME DCPIA - Discharge Planning Initial Assessment Updated by [id number]: Rose Pickett on 10/22/18 2:02 pm * Is the patient Alert and Oriented? Yes * How many steps to enter\exit or inside your home? * PCP [facility] * Pharmacy [facility] * Preadmission Environment Care Home Facility * Facility Name [facility] * ADLs Partial Dependent * Partial ADLs (Assistance needed) Bathing Medication Management * Equipment Rolling Walker * List name and contact numbers for known caregivers / representatives who currently or will assist patient after discharge: OSCAR [phone] * Verbal permission to speak to the caregivers and representatives has been obtained from the patient. N/A * Community resources currently utilized Other * Please name any agencies selected above. [facility] * Additional services required to return to the preadmission environment? Yes * Can the patient safely return to the preadmission environment? Yes * Has this patient been hospitalized within the prior 30 days at any hospital? Yes Last DP export: 10/22/18 10:24 a Patient Name: MYRA QUICK Page 06294 at 1405 All edits/amendments must be made on the electronic document DICTATION DATE: 10/22/18 1404 CAT OPERATOR: DORA 10/22/18 1404 RPT#: [id number] DC DATE: STATUS: ADM IN [facility] [address] [place] [address] END OF REPORT
--- NOTE | 2018-10-22 14:16 | MORECARE ---
CASE MANAGEMENT DISCHARGE SUMMARY PATIENT: MYRA QUICK UNIT: [id number] ADM DATE: 10/21/18 AGE: 83 : 33 SEX: M ROOM/BED: D.2217 AUTHOR: DAVE MEZA PHYSICIAN: REFERRING PHYSICIAN: DEBBIE CHAMBERS MD DATE OF SERVICE: 10/22/18 Discharge Plan Patient Name: MYRA QUICK Facility: [facility]:[place] : 1935 Planned Disposition: Intermediate Facility Anticipated Discharge Date: Discharge Date: Expected LOS: Initial Reviewer: [id number] Initial Review Date: 10/21/2018 Generated: 10/22/18 3:16 pm Comments DCP- Discharge Planning Updated by [email or web address]: Rose Pickett on 10/22/18 1:[address] Patient Name: MYRA QUICK Admission Status: ER Accout number: [id number] Admission Date: 10-21-2018 : 1935 Admission Diagnosis: Attending: DEBBIE CHAMBERS Current LOS: 1 Anticipated DC Date: Planned Disposition: Intermediate Facility Primary Insurance: MEDICARE A & B Discharge Planning Comments: CM met with patient to assess discharge planning needs. Patient had a hard time answering questions when I asked him. His preacher was in the room (patient gave permission to speak in front of him) He stated that the Patient is in the rehab side at [facility]. He and his live at [facility] in the independent side. He was released from the hospital to the Skilled area. He has a walker at home and a CPAP machine. He would like a Rollator walker and stated that [facility] is working on a new one. DANTE for [facility] obtained. CM will continue to follow and assist with DC planning . Water Quality Assistant: Rose Pickett DCP- Discharge Planning Updated by [email or web address]: Rose Pickett on 10/22/18 10:[address] ATTEMPTED TO SEE PATIENT, HE WAS SLEEPING. WILL REASSESS AT A LATER TIME DCPIA - Discharge Planning Initial Assessment Updated by [email or web address]: Rose Pickett on 10/22/18 2:02 pm * Is the patient Alert and Oriented? Yes * How many steps to enter\exit or inside your home? * PCP [facility] * Pharmacy [facility] * Preadmission Environment Intermediate Facility * Facility Name [facility] * ADLs Partial Dependent * Partial ADLs (Assistance needed) Bathing Medication Management * Equipment Rolling Walker * List name and contact numbers for known caregivers / representatives who currently or will assist patient after discharge: OSCAR [phone] * Verbal permission to speak to the caregivers and representatives has been obtained from the patient. N/A * Community resources currently utilized Other * Please name any agencies selected above. [facility] * Additional services required to return to the preadmission environment? Yes * Can the patient safely return to the preadmission environment? Yes * Has this patient been hospitalized within the prior 30 days at any hospital? Yes Last DP export: 10/22/18 1:05 p Patient Name: MYRA QUICK Page [id number] at 1416 All edits/amendments must be made on the electronic document DICTATION DATE: 10/22/181414 HORTICULTURE/FLORICULTURE TEACHER: DORA 10/22/181414 RPT#: [id number] DC DATE: STATUS: ADM IN [facility] [address] [place] [address] END OF REPORT
--- NOTE | 2018-10-22 14:41 | NUR ---
PT RETURNS TO FLOOR VIA BED FROM VQ SCAN. SPOKE WITH RICARDA MULTANI PERTAINING TO PT LUNG SOUNDS AND BLOOD TRANSFUSION AND POSSIBLITY OF MEDICATION TO PULL FLUID FROM PT PRIOR TO ADMINISTRATION. WILL WAIT FOR FURTHER INSTRUCTION PRIOR TO INTIATING TRANSFUSION.
[2018-10-22 14:44] VITALS: Ht 188 cm; Wt 109.8 kg
[2018-10-22 15:28] LABS: CKMB 3.1 U/L (0.0-3.6); CREATINE KINASE 93 UL (21-232)
[2018-10-22 15:29] LABS: TROPONIN-I 0.687 ng/mL (0.000-0.060)
--- NOTE | 2018-10-22 16:10 | NUR ---
TRANSFUSION OF (1) UNIT OF PRBC INITIATED. PT TOLERATING WELL. PT IS USING INCENTIVE SPIROMETER AT THIS TIME AND RESULTING IN A COUGH. FOR PRE TRANSFUSION VS SEE TRANSFUSION CARD IN CHART. FAMILY IS AT BEDSIDE. PT DENIES PRESENCE OF PAIN AND N/V AT THIS TIME. WILL CONT TO CLOSELY MONITOR THROUGHOUT TRANSFUSION. WILL STAY AT BEDSIDE FOR FIRST 15 MINUTES OF PRBC TRANSFUSION. BED IS IN THE LOWEST POSITION. CALL LIGHT AND BEDSIDE TABLE ARE WITHIN REACH.
--- NOTE | 2018-10-22 19:30 | NUR ---
BLOOD FINISHED SALINE LOCKED AFTER FLUSHING TOLERATED WELL, O2 IN CONTINOUS USE LUNGS SOUND CONGESTED NON PRODUCTIVE COUGH, DENIES PAIN, CALL LIGHT IN REACH
[2018-10-22 20:28] LABS: CKMB 2.6 U/L (0.0-3.6); CREATINE KINASE 73 UL (21-232)
[2018-10-22 20:37] LABS: TROPONIN-I 0.671 ng/mL (0.000-0.060)
[2018-10-22 21:09] VITALS: BP 156/50
[2018-10-23] VITALS (7 sets, daily range): BP systolic 140–178; BP diastolic 54–111
[2018-10-23 01:00] LABS: APPEARANCE CLEAR (CLEAR); BILIRUBIN NEGATIVE (NEGATIVE); COLOR YELLOW (YELLOW); GLUCOSE NEGATIVE (NEGATIVE); KETONE NEGATIVE (NEGATIVE); NITRITE NEGATIVE (NEGATIVE); PROTEIN TRACE mg/dL (NEGATIVE); SPECIFIC GRAVITY 1.015 (1.005-1.020); UROBILINOGEN NORMAL (NORMAL)
[2018-10-23 01:01] LABS: RED CELLS - URINE 0-5 /hpf (0-5); WHITE CELLS - URINE 0-5 /hpf (0-5)
[2018-10-23 01:02] LABS: BACTERIA FEW /hpf (NONE SEEN); EPITHELIAL CELLS 0-5 /hpf (0-5)
[2018-10-23 05:25] LABS: BASOPHILS 0.2 % (0-2); EOSINOPHILS 2.9 % (0-7); HEMATOCRIT 27.9 % (42.0-54.0); HEMOGLOBIN 8.6 g/dL (13.5-17.5); IMMATURE GRANULOCYTES 1.4 % (0-5); MCH 32.1 pg (26.0-34.0); MCHC 30.8 g/dL (31.0-37.0); MCV 104.1 fL (80.0-100.0); MEAN PLATELET VOLUME 10.2 fL (7.4-10.4); NEUTROPHILS 68.5 % (40-80); PLATELET COUNT 333 10x3/uL (130-400); RBC 2.68 10x6/uL (4.20-6.10); RDW 17.6 % (11.5-14.5); WBC 6.5 10x3/uL (4.8-10.8)
[2018-10-23 05:51] LABS: CALCIUM 10.1 mg/dL (8.5-10.1); CARBON DIOXIDE 31.4 mmol/L (21.0-32.0); CREATININE - SERUM 1.3 mg/dL (0.6-1.3); POTASSIUM - SERUM 4.4 mmol/L (3.5-5.1)
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
[2018-10-23 10:20] LABS: FOLATE (FOLIC ACID) - SERUM 8.8 ng/mL (>3.0)
--- NOTE | 2018-10-23 10:43 | NUR ---
NUTRITION F/U PT CURRENTLY ASLEEP. TOLERATING DIABETIC DIET WITH 50% INTAKE BREAKFAST THIS AM. WILL CONTINUE TO PROVIDE DIABETIC DIET, MONITOR PO INTAKE. RD FOLLOWING
--- NOTE | 2018-10-23 11:20 | EC ---
PATIENT:MYRA QUICK DATE OF SERVICE: 10/21/18 SEX: M MEDICAL RECORD: [id number] DATE OF : 31 LOCATION:[facility] AGE OF PATIENT: 83 ADMISSION DATE: 10/21/18 REFERRING PHYSICIAN: INTERPRETING PHYSICIAN: SIMONA ANDRES MD ECHOCARDIOGRAM REPORT ECHO CHARGES 5 ECHO LIMITED Date: 10/22/18 CLINICAL DIAGNOSIS: SOB ECHOCARDIOGRAPHIC MEASUREMENTS (adult normal given) AC root (d.<3.7cm) cm LV Septum d (<1.2 cm> cm Valve Excursion cm LV Septum (systole) cm Left Atria (s.<4.0cm> 3.9 cm LVPW d(<1.2cm) cm RV (d.<2.3cm) 3.8 cm LVPW (sytole) cm LV diastole(<5.6CM) 4.7 cm MV E-F(>70mm/sec) cm LV systole 3.5 cm LVOT Diameter 2.0 cm MV exc.(>10mm) cm Est.ejection fraction (50-75%) % DOPPLER: LVIT cm/sec A 154 cm/sec E 127 cm/sec LA cm/sec RVSP 19 mmHg LVOT 132 cm/sec AOP1/2T m/s Asc. Ao 169 cm/sec RVOT cm/sec RA cm/sec PA cm/sec AV Gradient Peak 11.42mmHg AV Mean 5.47 mmHg AV Area 3.5 cm MV Gradient Peak 10.10mmHg MV Mean 4.62 mmHg MV Area cm COMMENTS: Tractor Technician: Gustavo MAGUIRE Welt Insole Channeler: 1 Dr. Andres TAPE# PACS Pericardial Effusion N DATE OF SERVICE: 10/22/2018 PROCEDURE: Echocardiogram. FINDINGS: 1. Left ventricular chamber size is within normal limits. Left ventricular systolic function is normal. Overall ejection fraction estimated at 50% to 55%. 2. Left atrium is within normal limits at 3.9 cm. Right atrium and right ventricular chamber sizes are mildly dilated. 3. Valvular structures have normal structure and motion. ECHOCARDIOGRAM REPORT [id number] MYRA QUICK 4. Doppler interrogation reveals mild mitral regurgitation, mild tricuspid regurgitation, no other valvular insufficiency or stenosis. 5. No evidence of pericardial effusion or left ventricular thrombus. TRANSINT:[id number] Voice Confirmation ID: [id number] DOCUMENT ID: [id number] SIMONA ANDRES MD at 1120 CC: [id number] DICTATION DATE: 10/22/18 1242 SUPERVISOR SHUTTLE VENEERING: 10/22/18 1318 ADM IN [place] [id number] [place] [id number]
--- NOTE | 2018-10-23 20:00 | NUR ---
ASSESSMENT PER FLOWSHEET. BEDSIDE UPDRAFT BEING DONE O2 ON AT 4L/M PER NC.NO DISTRESS. SR UP X2 CALL LIGHT WITHIN REACH IV PATENT RT AC OF NS AT O.
--- NOTE | 2018-10-23 21:30 | NUR ---
MEDS PER MAR.
--- NOTE | 2018-10-24 | NUR ---
EYES CLOSED RESPIRATIONS WITH EASE AND UNLABORED. NO CHANGES IN ASSESSMENT CPAP PLACED ON PATIENT PER RT TECH. WITH USE OF O2
[2018-10-24 04:00] VITALS: BP 162/66
--- NOTE | 2018-10-24 04:00 | NUR ---
RESTING QUIETLY NO CHANGES IN ASSESSMNET
[2018-10-24 04:39] VITALS: BP 169/79
[2018-10-24 04:52] LABS: BASOPHILS 0.1 % (0-2); EOSINOPHILS 3.3 % (0-7); HEMATOCRIT 29.6 % (42.0-54.0); HEMOGLOBIN 9.1 g/dL (13.5-17.5); IMMATURE GRANULOCYTES 1.1 % (0-5); LYMPHOCYTES 16.9 % (15-50); MCH 31.9 pg (26.0-34.0); MCHC 30.7 g/dL (31.0-37.0); MCV 103.9 fL (80.0-100.0); MEAN PLATELET VOLUME 10.8 fL (7.4-10.4); MONOCYTES 6.9 % (2-11); NEUTROPHILS 71.7 % (40-80); PLATELET COUNT 337 10x3/uL (130-400); RBC 2.85 10x6/uL (4.20-6.10); RDW 16.9 % (11.5-14.5); WBC 7.9 10x3/uL (4.8-10.8)
[2018-10-24 04:55] LABS: CALCIUM 10.1 mg/dL (8.5-10.1); CARBON DIOXIDE 31.5 mmol/L (21.0-32.0); CREATININE - SERUM 1.5 mg/dL (0.6-1.3); POTASSIUM - SERUM 4.5 mmol/L (3.5-5.1)
--- NOTE | 2018-10-24 07:35 | NUR ---
PT RESTING IN BED, EYES CLOSED. RESPIRATIONS EVEN AND UNLABORED. NO C/O PAIN. NO S/S OF ACUTE DISTRESS NOTED. PT ALERT AND ORIENTED. PT FROM [facility]. PT HAS PACEMAKER LEFT SIDE. HX OF CVA WITH RIGHT SIDED WEAKNESS. LOVENOX FOR DVT PROTOCOL. PT ON 3L O2, NC. USES CPAP AT NIGHT. IV TO RIGHT AC, SITE PATENT WITHOUT REDNESS OR SWELLING, NS INFUSING @ 10ML/HR. PT ACHS. PT DENIES ANYTHING FURTHER AT THIS TIME. CALL LIGHT IN REACH. WILL CONTINUE TO MONITOR.
[2018-10-24 08:38] VITALS: BP 163/75
[2018-10-24 16:30] VITALS: BP 152/77
--- NOTE | 2018-10-24 18:41 | NUR ---
PT SITTING UP IN BED EATING SUPPER. NO C/O PAIN. NO S/S OF ACUTE DISTRESS NOTED. PT DENIES ANYTHING FURTHER AT THIS TIME. CALL LIGHT IN REACH. WILL CONTINUE TO MONITOR.
--- NOTE | 2018-10-24 19:00 | NUR ---
RN ASSSESSMENT COMPLETE. PT LYING IN BED RESTING QUIETLY. NO SIGNS OF DISTRESS NOTED.
[2018-10-24 20:00] VITALS: BP 172/68
[2018-10-25] VITALS: BP 172/68
--- NOTE | 2018-10-25 | NUR ---
RIGHT AC IV HAD COME OUT AT SHIFT CHANGE. JACQUIE SMITH ATTEMPTED NEW IV, BUT ALL HAD BLOWN. 22 GAUGE IV SIGHTED TO RIGHT AC BY JACQUIE RUTH. HUNG PIGGY BACKS. NO OTHER NEEDS. WILL CONTINUE TO MONITOR.
[2018-10-25 06:30] LABS: ANION GAP 10.8 mmol/L (8-16); CALCIUM 10.4 mg/dL (8.5-10.1); CARBON DIOXIDE 30.5 mmol/L (21.0-32.0); CREATININE - SERUM 1.4 mg/dL (0.6-1.3); POTASSIUM - SERUM 4.3 mmol/L (3.5-5.1)
[2018-10-25 06:41] LABS: BASOPHILS 0.1 % (0-2); EOSINOPHILS 3.2 % (0-7); HEMATOCRIT 28.4 % (42.0-54.0); HEMOGLOBIN 8.8 g/dL (13.5-17.5); IMMATURE GRANULOCYTES 0.9 % (0-5); LYMPHOCYTES 14.1 % (15-50); MCH 32.2 pg (26.0-34.0); MONOCYTES 6.8 % (2-11); NEUTROPHILS 74.9 % (40-80); PLATELET COUNT 342 10x3/uL (130-400); RBC 2.73 10x6/uL (4.20-6.10); RDW 16.5 % (11.5-14.5); WBC 7.4 10x3/uL (4.8-10.8)
--- NOTE | 2018-10-25 07:35 | NUR ---
PT RESTING IN BED, EYES OPEN. NO C/O PAIN. NO S/S OF ACUTE DISTRESS NOTED. PT ON 3L O2, NC. IV TO RIGHT AC, SITE PATENT WITHOUT REDNESS OR SWELLING, NS INFUSING @ 10ML/HR. PT ACHS. EXPIRATORY WHEEZES AUSCULTATED BILATERAL LUNGS, PRODUCTIVE COUGH. UNABLE TO COLLECT SPUTUM CULTURE. PT DENIES ANYTHING FURTHER AT THIS TIME. CALL LIGHT IN REACH. WILL CONTINUE TO MONITOR.
[2018-10-25 09:02] VITALS: BP 145/66
[2018-10-25 13:45] VITALS: BP 138/54
[2018-10-25 16:45] VITALS: BP 155/65
--- NOTE | 2018-10-25 19:29 | NUR ---
PT RESTING IN BED, EYES OPEN. NO C/O PAIN. NO S/S OF ACUTE DISTRESS NOTED. PT DENIES ANYTHING FURTHER AT THIS TIME. CALL LIGHT IN REACH. WILL CONTINUE TO MONITOR.
[2018-10-25 20:00] VITALS: BP 160/67
[2018-10-26] VITALS: BP 148/51
[2018-10-26 04:00] VITALS: BP 171/72
[2018-10-26 09:15] VITALS: BP 182/66
[2018-10-26 10:02] LABS: BASOPHILS 0.1 % (0-2); EOSINOPHILS 2.9 % (0-7); HEMATOCRIT 27.6 % (42.0-54.0); HEMOGLOBIN 8.6 g/dL (13.5-17.5); IMMATURE GRANULOCYTES 0.9 % (0-5); LYMPHOCYTES 17.7 % (15-50); MCH 32.5 pg (26.0-34.0); MCHC 31.2 g/dL (31.0-37.0); MCV 104.2 fL (80.0-100.0); MONOCYTES 8.5 % (2-11); NEUTROPHILS 69.9 % (40-80); PLATELET COUNT 319 10x3/uL (130-400); RBC 2.65 10x6/uL (4.20-6.10); RDW 16.4 % (11.5-14.5); WBC 8.5 10x3/uL (4.8-10.8)
[2018-10-26 10:03] LABS: ANION GAP 10.2 mmol/L (8-16); CALCIUM 10.4 mg/dL (8.5-10.1); CREATININE - SERUM 1.3 mg/dL (0.6-1.3); POTASSIUM - SERUM 4.2 mmol/L (3.5-5.1)
--- NOTE | 2018-10-26 11:03 | NUR ---
PATIENT IV RESTARTED IN RIGHT FA. RIGHT AC IV LEAKING. REMOVED WITH CATH TIP INTACT. CALL LIGHT WITHIN REACH.
[2018-10-26 14:10] VITALS: BP 176/72
[2018-10-26 18:09] VITALS: BP 150/78
--- NOTE | 2018-10-26 18:45 | NUR ---
PATIENT IN BED WITH NO COMPLAITNS OR SIGNS OF DISTRESS. IV INTACT. CALL LIGHT WITHIN REACH.
[2018-10-26 20:00] VITALS: BP 164/70
--- NOTE | 2018-10-26 22:45 | NUR ---
GAVE PT SCHEDULED MEDS. FSBS 134 - NO INSULIN PER SS. ASSESSMENT PER FLOW-SHEET. NO OTHER NEEDS. WILL CONTINUE TO MONITOR.
[2018-10-27] VITALS (14 sets, daily range): BP systolic 136–183; BP diastolic 56–85
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
[2018-10-27 06:55] LABS: ANION GAP 10.1 mmol/L (8-16); CALCIUM 10.4 mg/dL (8.5-10.1); CARBON DIOXIDE 30.9 mmol/L (21.0-32.0); CREATININE - SERUM 1.4 mg/dL (0.6-1.3)
[2018-10-27 07:14] LABS: HEMATOCRIT 27.2 % (42.0-54.0); HEMOGLOBIN 8.7 g/dL (13.5-17.5); LYMPHOCYTES 16.8 % (15-50); MEAN PLATELET VOLUME 11.1 fL (7.4-10.4); NEUTROPHILS 70.2 % (40-80); PLATELET COUNT 265 10x3/uL (130-400); RBC 2.64 10x6/uL (4.20-6.10); RDW 16.1 % (11.5-14.5); WBC 6.7 10x3/uL (4.8-10.8)
--- NOTE | 2018-10-27 11:06 | NUR ---
CALLED TO ASK IF SHE COULD COME UP AND SIT WITH HIM. SHE SAID SHE WAS WAITING ON A RIDE.
--- NOTE | 2018-10-27 11:39 | NUR ---
PATIENT REFUSING MEDICATIONS, TO WEAR HIS OXYGEN AND TO HAVE HIS BLOOD PRESSURE/ VITAL SIGNS TAKEN.
--- NOTE | 2018-10-27 11:53 | NUR ---
PATIENT STATED TO JUST "GET THE PISTOL" AND THAT HE IS TIRED OF LIVING
--- NOTE | 2018-10-27 12:12 | NUR ---
PATIENT ARRIVED FROM MED SURG VIA BED, TRANSFERED TO ICU BED VIA STAFF, PATIENT IS VERY CONFUSED AND NOT COMPLAINT TO CARE, JR 91 SR O2 SAT 93 ON O2 AT 2LPM/NC
--- NOTE | 2018-10-27 13:00 | NUR ---
DR. GOODWIN AT BEDSIDE, CVL PLACED AT THIS TIME, TOLERATES WELL
--- NOTE | 2018-10-27 13:40 | NUR ---
AT BEDSIDE, UPDATE GIVEN
--- NOTE | 2018-10-27 15:27 | NUR ---
DR. CHAMBERS NOTIFIED OF HIGH BLOOD PRESSURE, NEW ORDERS RECIEVED
--- NOTE | 2018-10-27 17:06 | NUR ---
PT INCONTINENT OF BLADDER, HASKINS PLACED AT THIS TIME, PT TOLERATED WELL
--- NOTE | 2018-10-27 21:54 | NUR ---
PT ARRIVED TO UNIT FROM [facility], AAOx4, DENIES PAIN, LEFT UPPER ARM MIDLINE SALINE LOCKED, LEFT ABDOMEN COLOSTOMY BAG DRAINED 525ML RED BLOOD LIQUID WITH LARGE CLOTTS FORMED, IMAGING HERE TO TAKE PT FOR CT
--- NOTE | 2018-10-27 22:05 | NUR ---
PT PULLING OXYGEN OFF AND REFUSING TO TAKE ANY PO MEDS, RT AT BEDSIDE TO PUT CPAP ON PT
--- NOTE | 2018-10-27 23:05 | NUR ---
PT PULLING AT HASKINS CATH LINE, PT DIFFICULT TO ORRIENTR TO SITUATION, WILL CONTINUE TO MONITOR
[2018-10-28] VITALS (25 sets, daily range): BP systolic 122–186; BP diastolic 68–116
--- NOTE | 2018-10-28 01:00 | NUR ---
PT IN NO ACUTE DISTRESS, VSS, REPOSITIONED FOR COMFORT, WILL CONTINUE TO ASSESS
--- NOTE | 2018-10-28 02:13 | NUR ---
GAVE PT x1 CUP ICE WATER PER REQUEST, ATTEMPTED TO GIVE MEDS BUT PT CONTINUES TO REFUSE
[2018-10-28 06:29] LABS: BASOPHILS 0.1 % (0-2); EOSINOPHILS 2.4 % (0-7); HEMATOCRIT 29.8 % (42.0-54.0); HEMOGLOBIN 9.3 g/dL (13.5-17.5); IMMATURE GRANULOCYTES 0.8 % (0-5); MCH 32.3 pg (26.0-34.0); MCHC 31.2 g/dL (31.0-37.0); MCV 103.5 fL (80.0-100.0); MEAN PLATELET VOLUME 11.4 fL (7.4-10.4); MONOCYTES 9.7 % (2-11); PLATELET COUNT 290 10x3/uL (130-400); RBC 2.88 10x6/uL (4.20-6.10); RDW 16.6 % (11.5-14.5); WBC 7.8 10x3/uL (4.8-10.8)
[2018-10-28 07:06] LABS: ANION GAP 10.7 mmol/L (8-16); CALCIUM 10.8 mg/dL (8.5-10.1); CREATININE - SERUM 1.3 mg/dL (0.6-1.3); POTASSIUM - SERUM 3.7 mmol/L (3.5-5.1); VANCOMYCIN - RANDOM 24.1 ug/mL (10.0-20.0)
--- NOTE | 2018-10-28 07:30 | NUR ---
REPORT RECIEVED, SHIFT ASSESSMENT COMPLETE, PT IS CONFUSED LYING IN BED, FOLLOWS COMMANDS, ALL PPP, VSS, WILL CON'T TO MONITOR
--- NOTE | 2018-10-28 09:00 | NUR ---
DR. SANCHEZ AT BEDSIDE, UPDATE GIVEN
--- NOTE | 2018-10-28 10:11 | NUR ---
NUTRITION F/U CHART REVIEWED. NURSING REPORTS PT REFUSING TO EAT, HOPEFUL CAN ENCOURAGE PO INTAKE. WILL CONTINUE TO PROVIDE DIET, MONITOR PT PROGRESS. RD FOLLOWING
--- NOTE | 2018-10-28 11:00 | NUR ---
REASSESSMENT COMPLETE, NO CHANGES NOTED, WILL CON'T TO MONITOR
--- NOTE | 2018-10-28 13:20 | NUR ---
PT REPOSITIONED FOR COMFORT, ORAL CARE PROVIDED
--- NOTE | 2018-10-28 15:15 | NUR ---
REASSESSMENT COMPLETE, NO CHANGES NOTED, PT RESTING WITH EYES CLOSED, WILL CON'T TO MONITOR
--- NOTE | 2018-10-28 17:00 | NUR ---
AT BEDSIDE NO NEW CHANGE GIVEN UPDATE. VSS WILL CONTINUE TO MONITOR
--- NOTE | 2018-10-28 20:00 | NUR ---
RT AT BEDSIDE TO PLACE PT ON HOME BIPAP, PT COOPERATING WITH Tx AT THIS TIME, HASKINS CARE COMPLETED, REPOSITIONED PT, RESTRAINTS REMOVED AND SKIN ASSESSED, PLACED RESTRAINTS BACK ON PT, PT VSS ON CM, WILL CONTINUE TO ASSESS
--- NOTE | 2018-10-28 21:00 | NUR ---
PT RESTING WITH NO S/S OF DISTRESS, ON HOME BIPAP TOLLERATING, VSS, REPOSITIONED FOR COMFORT
--- NOTE | 2018-10-28 23:00 | NUR ---
REASSESSED PER FLOW SHEET, NO ACUTE CHANGES NOTED, PT CONFUSED BUT COOPERATIVE AT THIS TIME, ATTEMPTED TO REORIENT PT, REPOSITIONED FOR COMFORT, B/P ELEVATED, MEDS GIVEN PER MAR, OTHER VSS, WILL CONTINUE TO MONITOR
[2018-10-29] VITALS (23 sets, daily range): BP systolic 108–163; BP diastolic 69–99
--- NOTE | 2018-10-29 03:00 | NUR ---
REASSESSMENT COMPLETE, NO CHANGE FROM PRIOR ASSESSMENT, REPOSITIONED BIPAP D/T MISSING PART TO KEEP SECURED TO FACE, RT AWARE OF MISSING PART SINCE PLACING PT ON BIPAP, REPOSITIONED PT, BRIDGED HEELS, PT WAKES TO VERBAL STEMULI, BLUE LAKE IN BOTH EARS BUT HEARS BETTER IN LEFT EAR, EQUAL REGISTERED DENTAL HYGIENIST STRENGTH NOTED, REATTEMPTED TO GIVE MED WITH NO NEW OUTCOME, PT REFUSED ALL PO MEDS, NO FURTHER AT THIS TIME, VSS, WILL CONTINUE TO ASSESS
--- NOTE | 2018-10-29 05:00 | NUR ---
PT SLEEPING WITH NO S/S OF ACUTE DISTRESS, VSS, REPOSITIONED FOR COMFORT, WILL CONTINUE TO MONITOR
[2018-10-29 05:03] LABS: BASOPHILS 0.1 % (0-2); EOSINOPHILS 1.5 % (0-7); HEMATOCRIT 30.9 % (42.0-54.0); HEMOGLOBIN 9.5 g/dL (13.5-17.5); IMMATURE GRANULOCYTES 0.3 % (0-5); MCH 31.8 pg (26.0-34.0); MCHC 30.7 g/dL (31.0-37.0); MCV 103.3 fL (80.0-100.0); MEAN PLATELET VOLUME 11.3 fL (7.4-10.4); MONOCYTES 9.9 % (2-11); NEUTROPHILS 78.2 % (40-80); PLATELET COUNT 301 10x3/uL (130-400); RBC 2.99 10x6/uL (4.20-6.10); RDW 16.7 % (11.5-14.5); WBC 8.7 10x3/uL (4.8-10.8)
[2018-10-29 05:33] LABS: ANION GAP 9.1 mmol/L (8-16); BILIRUBIN - TOTAL 0.42 mg/dL (0.2-1.3); CALCIUM 10.8 mg/dL (8.5-10.1); CARBON DIOXIDE 32.7 mmol/L (21.0-32.0); CREATININE - SERUM 1.4 mg/dL (0.6-1.3); POTASSIUM - SERUM 3.8 mmol/L (3.5-5.1); PROTEIN - SERUM 6.2 g/dL (6.4-8.2); VANCOMYCIN - RANDOM 17.7 ug/mL (10.0-20.0)
--- NOTE | 2018-10-29 06:00 | NUR ---
PT REFUSED BEDBATH MULTIPLE TIMES THROUGHOUT NIGHT, VSS, REPOSITIONED FOR COMFORT, WILL CONTINUE TO MONITOR
--- NOTE | 2018-10-29 07:30 | NUR ---
REPORT RECIEVED, SHIFT ASSESSMENT COMPLETE, PT IS CONFUSED LYING IN BED, ALL PPP, VSS, WILL CON'T TO MONITOR
--- NOTE | 2018-10-29 08:00 | NUR ---
ATTEMPTED TO FEED PT BREAKFAST TRAY, PT REFUSED TO EAT AT THIS TIME,
--- NOTE | 2018-10-29 09:00 | NUR ---
PT RESTING AT THIS TIME, WILL CON'T TO MONITOR
--- NOTE | 2018-10-29 09:24 | NUR ---
NUTRITION F/U PT CURRENTLY SLEEPING. PER NURSING REPORT PT REFUSED BREAKFAST THIS AM. NOTE DNR STATUS. WILL CONTINUE TO PROVIDE DIET. RD FOLLOWING
--- NOTE | 2018-10-29 11:00 | NUR ---
PT RESTLESS AT THIS TIME, ATTEMPTING TO CLIMB OOB
--- NOTE | 2018-10-29 12:00 | NUR ---
DR. ROQUE AT BEDSIDE, UPDATE GIVEN TO , DECISION TO PLACE PT ON HOSPICE AT THIS TIME,
--- NOTE | 2018-10-29 13:00 | NUR ---
FAMILY AT BEDSIDE, UPDATE GIVEN
--- NOTE | 2018-10-29 14:48 | MORECARE ---
CASE MANAGEMENT DISCHARGE SUMMARY PATIENT: MYRA QUICK UNIT: [id number] ADM DATE: 10/21/18 AGE: 83 : 33 SEX: M ROOM/BED: D.2316 AUTHOR: DERRICKDOC PHYSICIAN: REFERRING PHYSICIAN: DEBBIE CHAMBERS MD DATE OF SERVICE: 10/29/18 Discharge Plan Patient Name: MYRA QUICK Facility: [facility]:[place] : 1935 Planned Disposition: Detention Facility Anticipated Discharge Date: Discharge Date: Expected LOS: Initial Reviewer: [email or web address] Initial Review Date: 10/21/2018 Generated: 10/29/18 3:48 pm Comments DCP- Discharge Planning Updated by [email or web address]: Rose Pickett on 10/22/18 1:[address] Patient Name: MYRA QUICK Admission Status: ER Accout number: [id number] Admission Date: 10-21-2018 : 1935 Admission Diagnosis: Attending: DEBBIE CHAMBERS Current LOS: 1 Anticipated DC Date: Planned Disposition: Detention Facility Primary Insurance: MEDICARE A & B Discharge Planning Comments: CM met with patient to assess discharge planning needs. Patient had a hard time answering questions when I asked him. His preacher was in the room (patient gave permission to speak in front of him) He stated that the Patient is in the rehab side at [facility]. He and his live at [facility] in the independent side. He was released from the hospital to the Skilled area. He has a walker at home and a CPAP machine. He would like a Rollator walker and stated that [facility] is working on a new one. DANTE for [facility] obtained. CM will continue to follow and assist with DC planning . Timber Repairer: Rose Pickett DCP- Discharge Planning Updated by [email or web address]: Rose Pickett on 10/22/18 10:[address] ATTEMPTED TO SEE PATIENT, HE WAS SLEEPING. WILL REASSESS AT A LATER TIME DCPIA - Discharge Planning Initial Assessment Updated by [id number]: Rose Pickett on 10/22/18 2:02 pm * Is the patient Alert and Oriented? Yes * How many steps to enter\exit or inside your home? * PCP [facility] * Pharmacy [facility] * Preadmission Environment Detention Facility * Facility Name [facility] * ADLs Partial Dependent * Partial ADLs (Assistance needed) Bathing Medication Management * Equipment Rolling Walker * List name and contact numbers for known caregivers / representatives who currently or will assist patient after discharge: OSCAR [phone] * Verbal permission to speak to the caregivers and representatives has been obtained from the patient. N/A * Community resources currently utilized Other * Please name any agencies selected above. [facility] * Additional services required to return to the preadmission environment? Yes * Can the patient safely return to the preadmission environment? Yes * Has this patient been hospitalized within the prior 30 days at any hospital? Yes External Providers External Provider: [facility] [facility](provides in Next Contact Date: Service Request Date: Service Type: Resolution: Reviewer: Comments: Last DP export: 10/22/18 1:16 p Patient Name: MYRA QUICK Page [id number] at 1448 All edits/amendments must be made on the electronic document DICTATION DATE: 10/29/18 144 TRAIN DIRECTOR: DORA 10/29/18 1448 RPT#: [id number] RI DATE: STATUS: ADM IN [facility] [address] [place] [address] END OF REPORT
--- NOTE | 2018-10-29 15:15 | NUR ---
FAMILY AT BEDSIDE, WILL CON'T TO MONITOR
--- NOTE | 2018-10-29 17:53 | NUR ---
HOSPICE HERE TO SPEAK WITH FAMILY
--- NOTE | 2018-10-29 19:30 | NUR ---
PT REMOVED FROM RESTRAINTS, PT BEGAN TO REMOVE BLANKETS AND PILLOWS, STARTED PULLING HASKINS CATH TUBING AND STARTED TO GRAB CVL LINES, ATTEMPTED TO REORIENT PT TO SITUATION, PT STATED "GET OUT OF MY WAY", DISCUSSED WITH PT ABOUT FALL RISK AND NEED TO STAY IN BED, MED GIVEN PER MAR FOR AGGITATION, WILL CONTINUE TO ASSESS, VSS
--- NOTE | 2018-10-29 19:45 | NUR ---
PT THROWING ALL LINEN OFF BED AND PULLING AT CVL LINE, ATTEMPTED TO REORIENT PT UNSUCCESSFULL, REPLACED RESTRAINTS AND DISCUSSED WITH PT ABOUT USE, WILL CONTINUE TO MONITOR
--- NOTE | 2018-10-29 20:07 | MORECARE ---
CASE MANAGEMENT DISCHARGE SUMMARY PATIENT: MYRA QUICK UNIT: [id number] ADM DATE: 10/21/18 AGE: 83 : 33 SEX: M ROOM/BED: D.2316 AUTHOR: DERRICK,DOC PHYSICIAN: REFERRING PHYSICIAN: DEBBIE CHAMBERS MD DATE OF SERVICE: 10/29/18 Discharge Plan Patient Name: MYRA QUICK Facility: [facility]:[place] : 1935 Planned Disposition: Custodial Facility Anticipated Discharge Date: Discharge Date: Expected LOS: Initial Reviewer: [email or web address] Initial Review Date: 10/21/2018 Generated: 10/29/18 9:07 pm Comments DCP- Discharge Planning Updated by [email or web address]: Marcy Bowers on 10/29/18 7:[address] CM RECIEVED NOTIFICATION FOR HOSPICE. CM MET AND SPOKE WITH FAMILY DANTE SIGNED FOR [facility]. CM NOTIFIED STEPHANIA ENGL[place] [phone] AND FAXED OVER RECORDS. IMM EXPLAINED AND SERVED 10/29/18 @ 1455. CM WILL CONTINUE TO FOLLOW AND ASSIST NEEDED WITH DISCHARGE PLANNING / NEEDS. DCP- Discharge Planning Updated by [email or web address]: Rose Pickett on 10/22/18 1:[address] Patient Name: MYRA QUICK Admission Status: ER Accout number: [id number] Admission Date: 10-21-2018 : 1935 Admission Diagnosis: Attending: DEBBIE CHAMBERS Current LOS: 1 Anticipated DC Date: Planned Disposition: Custodial Facility Primary Insurance: MEDICARE A & B Discharge Planning Comments: CM met with patient to assess discharge planning needs. Patient had a hard time answering questions when I asked him. His preacher was in the room (patient gave permission to speak in front of him) He stated that the Patient is in the rehab side at [facility]. He and his live at [facility] in the independent side. He was released from the hospital to the Skilled area. He has a walker at home and a CPAP machine. He would like a Rollator walker and stated that [facility] is working on a new one. DANTE for [facility] obtained. CM will continue to follow and assist with DC planning . Recycling Crew Supervisor: Rose Pickett DCP- Discharge Planning Updated by [email or web address]: Rose Pickett on 10/22/18 10:[address] ATTEMPTED TO SEE PATIENT, HE WAS SLEEPING. WILL REASSESS AT A LATER TIME DCPIA - Discharge Planning Initial Assessment Updated by [email or web address]: Rose Pickett on 10/22/18 2:02 pm * Is the patient Alert and Oriented? Yes * How many steps to enter\exit or inside your home? * PCP [facility] * Pharmacy [facility] * Preadmission Environment Custodial Facility * Facility Name [facility] * ADLs Partial Dependent * Partial ADLs (Assistance needed) Bathing Medication Management * Equipment Rolling Walker * List name and contact numbers for known caregivers / representatives who currently or will assist patient after discharge: OSCAR [phone] * Verbal permission to speak to the caregivers and representatives has been obtained from the patient. N/A * Community resources currently utilized Other * Please name any agencies selected above. [facility] * Additional services required to return to the preadmission environment? Yes * Can the patient safely return to the preadmission environment? Yes * Has this patient been hospitalized within the prior 30 days at any hospital? Yes Last DP export: 10/29/18 1:48 p Patient Name: MYRA QUICK Page [id number] at 2007 All edits/amendments must be made on the electronic document DICTATION DATE: 10/29/182005 KILN TENDER: DORA 10/29/182005 RPT#: [id number] [place] DATE: STATUS: ADM IN [facility] [address] [place] [address] END OF REPORT
--- NOTE | 2018-10-29 20:13 | MORECARE ---
CASE MANAGEMENT DISCHARGE SUMMARY PATIENT: MYRA QUICK UNIT: [id number] ADM DATE: 10/21/18 AGE: 83 : 33 SEX: M ROOM/BED: D.2316 AUTHOR: DERRICK,DOC PHYSICIAN: REFERRING PHYSICIAN: DEBBIE CHAMBERS MD DATE OF SERVICE: 10/29/18 Discharge Plan Patient Name: MYRA QUICK Facility: [facility]:[place] : 1935 Planned Disposition: [facility]sp Facility Anticipated Discharge Date: Discharge Date: Expected LOS: Initial Reviewer: [email or web address] Initial Review Date: 10/21/2018 Generated: 10/29/18 9:13 pm Comments DCP- Discharge Planning Updated by [email or web address]: Marcy Bowers on 10/29/18 7:[address] CM RECIEVED NOTIFICATION FOR HOSPICE. CM MET AND SPOKE WITH FAMILY DANTE SIGNED [facility]. CM NOTIFIED STEPHANIA ENGLAND [phone] AND FAXED OVER RECORDS. IMM EXPLAINED AND SERVED 10/29/18 @ 1457. CM WILL CONTINUE TO FOLLOW AND ASSIST NEEDED WITH DISCHARGE PLANNING / NEEDS. Appended by Marcy Bowers on 10/29/2018 20:13 NUTRITION CONSULTANT: CM NOTIFIED THAT PATIENT WAS NOT ACCEPTED FOR INPATIENT HOSPICE. IF PATIENT DECLINES THEY WILL RE-EVALUATE DCP- Discharge Planning Updated by [email or web address]: Rose Pickett on 10/22/18 1:[address] Patient Name: MYRA QUICK Admission Status: ER Accout number: [id number] Admission Date: 10-21-2018 : 1935 Admission Diagnosis: Attending: DEBBIE CHAMBERS Current LOS: 1 Anticipated DC Date: Planned Disposition: [facility]sp Facility Primary Insurance: MEDICARE A & B Discharge Planning Comments: CM met with patient to assess discharge planning needs. Patient had a hard time answering questions when I asked him. His preacher was in the room (patient gave permission to speak in front of him) He stated that the Patient is in the rehab side at [facility]. He and his live at [facility] in the independent side. He was released from the hospital to the Skilled area. He has a walker at home and a CPAP machine. He would like a Rollator walker and stated that [facility] is working on a new one. DANTE for [facility] obtained. CM will continue to follow and assist with DC planning . Route Delivery Driver: Rose Pickett DCP- Discharge Planning Updated by [id number]: Rose Pickett on 10/22/18 10:[address] ATTEMPTED TO SEE PATIENT, HE WAS SLEEPING. WILL REASSESS AT A LATER TIME DCPIA - Discharge Planning Initial Assessment Updated by [email or web address]: Rose Pickett on 10/22/18 2:02 pm * Is the patient Alert and Oriented? Yes * How many steps to enter\exit or inside your home? * PCP [facility] * Pharmacy [facility] * Preadmission Environment [facility] Facility * Facility Name [facility] * ADLs Partial Dependent * Partial ADLs (Assistance needed) Bathing Medication Management * Equipment Rolling Walker * List name and contact numbers for known caregivers / representatives who currently or will assist patient after discharge: OSCAR [phone] * Verbal permission to speak to the caregivers and representatives has been obtained from the patient. N/A * Community resources currently utilized Other * Please name any agencies selected above. [facility] * Additional services required to return to the preadmission environment? Yes * Can the patient safely return to the preadmission environment? Yes * Has this patient been hospitalized within the prior 30 days at any hospital? Yes Last DP export: 10/29/18 7:07 p Patient Name: MYRA QUICK Page [id number] at 2013 All edits/amendments must be made on the electronic document DICTATION DATE: 10/29/182012 DYE HOUSE HELPER: DORA 10/29/182012 RPT#: [id number] DC DATE: STATUS: ADM IN [facility] [address] [place] [address] END OF REPORT
--- NOTE | 2018-10-29 20:20 | MORECARE ---
CASE MANAGEMENT DISCHARGE SUMMARY PATIENT: MYRA QUICK UNIT: [id number] ADM DATE: 10/21/18 AGE: 83 : 33 SEX: M ROOM/BED: D.2316 AUTHOR: DERRICK,DOC PHYSICIAN: REFERRING PHYSICIAN: DEBBIE CHAMBERS MD DATE OF SERVICE: 10/29/18 Discharge Plan Patient Name: MYRA QUICK Facility: [facility]:[place] : 1935 Planned Disposition: [facility] Facility Anticipated Discharge Date: Discharge Date: Expected LOS: Initial Reviewer: [email or web address] Initial Review Date: 10/21/2018 Generated: 10/29/18 9:20 pm Comments DCP- Discharge Planning Updated by [email or web address]: Marcy Bowers on 10/29/18 7:[address] CM RECIEVED NOTIFICATION FOR HOSPICE. CM MET AND SPOKE WITH FAMILY DANTE SIGNED FOR [facility] FOR INPATIENT HOSPICE. CM NOTIFIED STEPHANIA ENGLAND [phone] AND FAXED OVER RECORDS. IMM EXPLAINED AND SERVED 10/29/18 @ 1457. CM WILL CONTINUE TO FOLLOW AND ASSIST NEEDED WITH DISCHARGE PLANNING / NEEDS. Appended by Marcy Bowers on 10/29/2018 20:13 TECHNICAL ADMINISTRATOR: CM NOTIFIED THAT PATIENT WAS NOT ACCEPTED FOR INPATIENT HOSPICE. IF PATIENT DECLINES THEY WILL RE-EVALUATE DCP- Discharge Planning Updated by [email or web address]: Rose Pickett on 10/22/18 1:[address] Patient Name: MYRA QUICK Admission Status: ER Accout number: [id number] Admission Date: 10-21-2018 : 1935 Admission Diagnosis: Attending: DEBBIE CHAMBERS Current LOS: 1 Anticipated DC Date: Planned Disposition: [facility] Facility Primary Insurance: MEDICARE A & B Discharge Planning Comments: CM met with patient to assess discharge planning needs. Patient had a hard time answering questions when I asked him. His preacher was in the room (patient gave permission to speak in front of him) He stated that the Patient is in the rehab side at [facility]. He and his live at [facility] in the independent side. He was released from the hospital to the Skilled area. He has a walker at home and a CPAP machine. He would like a Rollator walker and stated that [facility] is working on a new one. DANTE for [facility] obtained. CM will continue to follow and assist with DC planning . Paper And Prints Restorer: Rose Pickett DCP- Discharge Planning Updated by [id number]: Rose Pickett on 10/22/18 10:[address] ATTEMPTED TO SEE PATIENT, HE WAS SLEEPING. WILL REASSESS AT A LATER TIME DCPIA - Discharge Planning Initial Assessment Updated by [email or web address]: Rose Pickett on 10/22/18 2:02 pm * Is the patient Alert and Oriented? Yes * How many steps to enter\exit or inside your home? * PCP [facility] * Pharmacy [facility] * Preadmission Environment [facility] Facility * Facility Name [facility] * ADLs Partial Dependent * Partial ADLs (Assistance needed) Bathing Medication Management * Equipment Rolling Walker * List name and contact numbers for known caregivers / representatives who currently or will assist patient after discharge: OSCAR [phone] * Verbal permission to speak to the caregivers and representatives has been obtained from the patient. N/A * Community resources currently utilized Other * Please name any agencies selected above. [facility] * Additional services required to return to the preadmission environment? Yes * Can the patient safely return to the preadmission environment? Yes * Has this patient been hospitalized within the prior 30 days at any hospital? Yes Last DP export: 10/29/18 7:07 p Patient Name: MYRA QUICK Page [id number] at 2020 All edits/amendments must be made on the electronic document DICTATION DATE: 10/29/182018 ADDRESS CHANGE CLERK: DORA 10/29/18 2019 RPT#: [id number] DC DATE: STATUS: ADM IN [facility] [address] [place] [address] END OF REPORT
--- NOTE | 2018-10-29 20:22 | NUR ---
PT PLACED ON HOME BIPAP, PT TOLLERATING WELL, NO S/S OF ACUTE DISTRESS, WILL CONTINUE TO MONITOR, RT AWARE OF PT ON HOME BIPAP
--- NOTE | 2018-10-29 21:00 | NUR ---
PT REFUSING MEDS, ALSO REFUSING FSBG CHECKS, PT RAISES VOICE AND STATES "NO" MULTIPLE TIMES AND PULLS HANDS BACK, ASKED PT MULTIPLE TIMES FOR BOTH MEDS AND FSBG CHECK AND PT CONTINUED TO REFUSE.
--- NOTE | 2018-10-29 23:00 | NUR ---
REASSESSMENT COMPLETE PER FLOW SHEET, NO S/S OF ACUTE DISTRESS, PT ABLE TO REST, CONFUSED AND CONTINUES TO PULL AT LINES, RESTRAINTS USED TO PROTECT PT AND LINES, REPOSITIONED PT IN BED, HOB ELEVATED, PT WEARING HOME CPAP, VSS, ASSISTED PT WITH DRINKING WATER FREQUENTLY, WILL CONTINUE TO MONITOR
[2018-10-30] VITALS (10 sets, daily range): BP systolic 107–151; BP diastolic 59–85
--- NOTE | 2018-10-30 01:00 | NUR ---
PT COMFORTABLE IN BED SLEEPING, VSS, IN NO ACUTE DISTRESS, ABLE TO WAKE WITH VERBAL STEMULI, ON HOME CPAP
--- NOTE | 2018-10-30 03:00 | NUR ---
REASSESSMENT COMPLETE PER FLOW SHEET, NO ACUTE CHANGES, PT REPOSITIONED IN BED, VSS, WILL CONTINUE TO ASSESS
[2018-10-30 05:20] LABS: BASOPHILS 0.1 % (0-2); HEMATOCRIT 30.2 % (42.0-54.0); HEMOGLOBIN 9.6 g/dL (13.5-17.5); IMMATURE GRANULOCYTES 0.5 % (0-5); LYMPHOCYTES 11.9 % (15-50); MCH 32.7 pg (26.0-34.0); MCHC 31.8 g/dL (31.0-37.0); MCV 102.7 fL (80.0-100.0); MEAN PLATELET VOLUME 11.6 fL (7.4-10.4); MONOCYTES 9.9 % (2-11); NEUTROPHILS 75.6 % (40-80); PLATELET COUNT 284 10x3/uL (130-400); RBC 2.94 10x6/uL (4.20-6.10); RDW 16.7 % (11.5-14.5); WBC 8.3 10x3/uL (4.8-10.8)
[2018-10-30 05:38] LABS: ANION GAP 12.9 mmol/L (8-16); CALCIUM 10.9 mg/dL (8.5-10.1); CARBON DIOXIDE 30.7 mmol/L (21.0-32.0); CREATININE - SERUM 1.7 mg/dL (0.6-1.3); POTASSIUM - SERUM 3.6 mmol/L (3.5-5.1)
--- NOTE | 2018-10-30 07:15 | NUR ---
REPORT RECIEVED, SHIFT ASSESSMENT COMPLETE, PT IS LETHARGIC AT THIS TIME, RESPONDS TO PAINFUL STIMULI, REPOSITIONED FOR COMFORT, ALL PPP, VSS, WILL CON'T TO MONITOR
--- NOTE | 2018-10-30 09:30 | NUR ---
FAMILY AT BEDSIDE, UPDATE GIVEN
--- NOTE | 2018-10-30 11:10 | NUR ---
PT PULLING AT TUBES AND LINES, ATTEMPTED TO REORIENT
--- NOTE | 2018-10-30 13:39 | NUR ---
PT O2 SAT DECREASING, INCREASED O2 TO 8L NC
--- NOTE | 2018-10-30 14:30 | NUR ---
HOSPICE AT BEDSIDE TO SPEAK WITH FAMILY
--- NOTE | 2018-10-30 15:25 | NUR ---
MARIBELL CLAY AT BEDSIDE SPOKE WITH FAMILY
--- NOTE | 2018-10-30 16:05 | NUR ---
PT ACCEPTED BY HOSPICE, FAMILY AT BEDSIDE
--- NOTE | 2018-10-30 19:58 | MORECARE ---
CASE MANAGEMENT DISCHARGE SUMMARY PATIENT: MYRA QUICK UNIT: [id number] ADM DATE: 10/21/18 AGE: 83 : 33 SEX: M ROOM/BED: D.2316 AUTHOR: DERRICK,DOC PHYSICIAN: REFERRING PHYSICIAN: DEBBIE CHAMBERS MD DATE OF SERVICE: 10/30/18 Discharge Plan Patient Name: MYRA QUICK Facility: [facility]:[place] : 1935 Planned Disposition: Nursing Home Facility Anticipated Discharge Date: Discharge Date: 10/30/2018 Expected LOS: Initial Reviewer: [email or web address] Initial Review Date: 10/21/2018 Generated: 10/30/18 8:58 pm Comments DCP- Discharge Planning Updated by [email or web address]: Marcy Bowers on 10/30/18 6:[address] [facility] AND WILL ADMIT FOR INPATIENT [facility] DCP- Discharge Planning Updated by [email or web address]: Marcy Bowers on 10/29/18 7:[address] CM RECIEVED NOTIFICATION FOR HOSPICE. CM MET AND SPOKE WITH FAMILY DANTE SIGNED FOR [facility] FOR INPATIENT HOSPICE. CM NOTIFIED STEPHANIA ENGLAND [phone] AND FAXED OVER RECORDS. IMM EXPLAINED AND SERVED 10/29/18 @ 3017. CM WILL CONTINUE TO FOLLOW AND ASSIST NEEDED WITH DISCHARGE PLANNING / NEEDS. Appended by Marcy Bowers on 10/29/2018 20:13 MUSEUM REGISTRAR: CM NOTIFIED THAT PATIENT WAS NOT ACCEPTED FOR INPATIENT HOSPICE. IF PATIENT DECLINES THEY WILL RE-EVALUATE DCP- Discharge Planning Updated by [email or web address]: Rose Pickett on 10/22/18 1:[address] Patient Name: MYRA QUICK Admission Status: ER Accout number: [id number] Admission Date: 10-21-2018 : 1935 Admission Diagnosis: Attending: DEBBIE CHAMBERS Current LOS: 1 Anticipated DC Date: Planned Disposition: Nursing Home Facility Primary Insurance: MEDICARE A & B Discharge Planning Comments: CM met with patient to assess discharge planning needs. Patient had a hard time answering questions when I asked him. His preacher was in the room (patient gave permission to speak in front of him) He stated that the Patient is in the rehab side at [facility]. He and his live at [facility] in the independent side. He was released from the hospital to the Skilled area. He has a walker at home and a CPAP machine. He would like a Rollator walker and stated that [facility] is working on a new one. DANTE for [facility] obtained. CM will continue to follow and assist with DC planning . Financial Analysis Consultant: Rose Pickett DCP- Discharge Planning Updated by [email or web address]: Rose Pickett on 10/22/18 10:[address] ATTEMPTED TO SEE PATIENT, HE WAS SLEEPING. WILL REASSESS AT A LATER TIME DCPIA - Discharge Planning Initial Assessment Updated by [email or web address]: Rose Pickett on 10/22/18 2:02 pm * Is the patient Alert and Oriented? Yes * How many steps to enter\exit or inside your home? * PCP [facility] * Pharmacy [facility] * Preadmission Environment Nursing Home Facility * Facility Name [facility] * ADLs Partial Dependent * Partial ADLs (Assistance needed) Bathing Medication Management * Equipment Rolling Walker * List name and contact numbers for known caregivers / representatives who currently or will assist patient after discharge: OSCAR [phone] * Verbal permission to speak to the caregivers and representatives has been obtained from the patient. N/A * Community resources currently utilized Other * Please name any agencies selected above. [facility] * Additional services required to return to the preadmission environment? Yes * Can the patient safely return to the preadmission environment? Yes * Has this patient been hospitalized within the prior 30 days at any hospital? Yes Last DP export: 10/29/18 7:20 p Patient Name: MYRA QUICK Page [id number] Electronically Signed by DAVE [facility] CITY[facility]ony on 10/30/18 at 8 All edits/amendments must be made on the electronic document DICTATION DATE: 10/30/181957 FLUMER: DORA 10/30/181957 RPT#: [id number] DC DATE:10/30/18 STATUS: DIS IN [facility] [address] [facility] [place] [address] END OF REPORT
--- NOTE | 2018-11-07 09:41 | OP ---
PATIENT NAME: MYRA QUICK MEDICAL RECORD: [id number] :[birth year] LOCATION:[facility] D.2316 ADMISSION DATE:10/21/18 SURGEON: MAR GOODWIN MD DATE OF OPERATION: 10/27/2018 PREOPERATIVE DIAGNOSES: 1. Need for IV access. 2. Pneumonia. 3. Altered mental status. 4. Coronary artery disease. 5. Diabetes mellitus. POSTOPERATIVE DIAGNOSES: 1. Need for IV access. 2. Pneumonia. 3. Altered mental status. 4. Coronary artery disease. 5. Diabetes mellitus. PROCEDURE: Right subclavian vein triple-lumen central venous line placement. SURGEON: Mar Goodwin MD REPORT OF PROCEDURE: The patient's right chest was prepped and draped in sterile fashion. A 5 cc of 1% lidocaine was infused into the subcutaneous tissues. A needle was used to cannulate the right subclavian vein and a guidewire was advanced with ease. Over this wire, dilator was placed followed by the triple lumen catheter. The catheter aspirated nonpulsatile dark blood and flushed easily in all 3 ports. This was sutured into place with 3-0 silk ties and dressed appropriately. COMPLICATIONS: None. CONDITION: Stable. ANESTHESIA: Local. BLOOD LOSS: Minimal. TRANSINT:[id number] Voice Confirmation ID: [id number] DOCUMENT ID: [id number] MAR GOODWIN MD at 0941 CC: [id number] DICTATION DATE: 10/27/18 1355 HEALTH MANAGER: 10/27/18 1547 DIS IN 10/30/18 [place] [id number] [place] [id number]
== END 2018-10-30 16:13 | disposition hospice, inpatient (51) | DRG 177 ==
LOC: D.ER 19:31 → D.ICU 22:14 → D.MS 22:14 → D.ICU 10-27 12:10
PROVIDERS: Family Medicine; Internal Medicine Pulmonary Disease; ADMIT Internal Medicine Nephrology
DX: J69.0 Pneumonitis due to inhalation of food and vomit (principal); I26.99 Other pulmonary embolism without acute cor pulmonale; J96.01 Acute respiratory failure with hypoxia; I50.33 Acute on chronic diastolic (congestive) heart failure; G92 Toxic encephalopathy; I24.8 Other forms of acute ischemic heart disease; N17.9 Acute kidney failure, unspecified; J44.1 Chronic obstructive pulmonary disease with (acute) exacerbation; I13.0 Hypertensive heart and chronic kidney disease with heart failure and stage 1 through stage 4 chronic kidney disease, or unspecified chronic kidney disease; E11.9 Type 2 diabetes mellitus without complications; I10 Essential (primary) hypertension; D64.9 Anemia, unspecified; I25.10 Atherosclerotic heart disease of native coronary artery without angina pectoris; G47.33 Obstructive sleep apnea (adult) (pediatric); K21.9 Gastro-esophageal reflux disease without esophagitis; E11.21 Type 2 diabetes mellitus with diabetic nephropathy

== ENCOUNTER 2018-10-30 15:56 | Inpatient (IN) | payer OTHER ==
[~2018-10-30] VITALS: Ht 188 cm; Wt 110.0 kg
[~2018-10-30 15:56] MED LIST changes: +BAYER CHEWABLE81 MG PO; +DIFLUCAN150 MG PO; +IPRAT-ALBUT 0.5-3 ML UPD; +PHENAZOPYRIDIN100 MG PO; +ULTRAM50 MG PO
[2018-10-30 16:17] VITALS: BP 119/63; BMI 31.1
--- NOTE | 2018-10-30 16:19 | NUR ---
PT ADMITTED TO HOSPICE AT THIS TIME, FAMILY AT BEDSIDE,
[2018-10-30 16:31] VITALS: BP 119/63
[2018-10-30 16:32] VITALS: BP 119/63
--- NOTE | 2018-10-30 18:24 | NUR ---
REPORT CALLED TO MED SURG
--- NOTE | 2018-10-30 18:51 | NUR ---
PT ICU TRANSFER. PT VITALS STABLE, EXCEPT O2 SAT 87%. PT REFUSES OXYGEN, STATES IT'S BEEN GOING ON OVER A YEAR AND I DO NOT WANT IT. PT DENIES ANY PAIN. PT ON HOSPICE. PT ADMITTED WITH RESPIRATORY DISTRESS. PT COMBATIVE/CONFUSED AT TIMES. PICC TO RIGHT SUBCLAVIAN, NS INFUSING @ 10ML/HR. SITE PATENT WITHOUT REDNESS OR SWELLING. PACEMAKER TO LEFT CHEST. BILATERAL HEELS RED. REPOSTION Q2 HOURS. PT DENIES ANYTHING FURTHER AT THIS TIME. NO S/S OF ACUTE DISTRESS NOTED. CALL LIGHT IN REACH. WILL CONTINUE TO MONITOR.
[2018-10-30 20:00] VITALS: BP 118/34
--- NOTE | 2018-10-30 20:00 | NUR ---
PT LYING IN BED, NO SIGNS OF DISTRESS. 02 91% ON ROOM AIR. SPOUSE AND DAUGHTER AT BEDSIDE. RIGHT SUBCLAVIAN INFUSING NS @ KVO W/ MORPHINE METROLOGY ENGINEER. TURNED PT TO LEFT SIDE FOR COMFORT. PT SCRATCHING AT LEFT ARM AND ABDOMEN. FAMILY APPLIED LOTION TO ARMS. PT CONTINUE TO SCRATCH UNTIL ARM WAS REDDENED. NO RASH PRESENT. NOTIFIED HOSPICE NURSE. ORDERS FOR BENADRYL 50MG IV Q6HPRN AND TO NOTIFY IF RASH BECOMES PRESENT. BENADRYL GIVEN, ITCHING STOPPED. WILL CONTINUE TO MONITOR
--- NOTE | 2018-10-30 22:00 | NUR ---
TURNED PT TO RIGHT SIDE
--- NOTE | 2018-10-31 00:30 | NUR ---
TURNED PT TO BACK
--- NOTE | 2018-10-31 02:30 | NUR ---
TURNED TO LEFT SIDE
--- NOTE | 2018-10-31 04:45 | NUR ---
TURNED TO RIGHT SIDE. PT DENIES NEEDS AT THIS TIME. DENIES ANYMORE ITCHING. WILL CONTINUE TO MONITOR
--- NOTE | 2018-10-31 06:30 | NUR ---
PT LYING ON BACK, NO SIGNS OF DISTRESS. BREATHING EVEN, UNLABORED. DENIES NEEDS. BRIDGED HEELS W/ PILLOW. WILL CONTINUE TO MONITOR
[2018-10-31 08:45] VITALS: BP 131/64
--- NOTE | 2018-10-31 10:00 | NUR ---
STAFF ATTEMPTED TO FEED BREAKFASST. ATE ONLY A FEW BITES.
--- NOTE | 2018-10-31 11:00 | NUR ---
AT BEDSIDE. REQUESTED AND GIVEN A FEW SIPS OF WATER. NO FURTHER NEEDS NOTED.
--- NOTE | 2018-10-31 12:00 | NUR ---
NO CHANGES NOTED.
[2018-10-31 12:33] VITALS: Ht 188 cm; Wt 110.0 kg
--- NOTE | 2018-10-31 13:00 | NUR ---
VISITOR AT BEDSIDE. REFUSED TO EAT ANY LUNCH.
--- NOTE | 2018-10-31 14:00 | NUR ---
HOB UP 30 DEGREES. NO CHANGES NOTED AT THIS TIME.
--- NOTE | 2018-10-31 15:00 | NUR ---
NO CHANGES NOTED. RESTING QUIETLY. NO RESTLESSNESS NOTED.
--- NOTE | 2018-10-31 16:00 | NUR ---
NO CHANGES NOTED.
--- NOTE | 2018-10-31 17:09 | NUR ---
RESPIRATIONS EVEN AND UNLABORED. O2 AT 4L NC. NO CHANGES NOTED.
--- NOTE | 2018-10-31 18:00 | NUR ---
RESPIRATIONS EVEN AND UNLABORED. NO URINE OUTPUT TODAY. NO CHANGES NOTED.L
--- NOTE | 2018-10-31 19:45 | NUR ---
PT LYING IN BED, NO SIGNS OF DISTRESS. AWAKES TO VERBAL STIMULI. DENIES NEEDS. FAMILY AT BEDSIDE. MORPHINE MORTGAGE COORDINATOR IN USE. BILAT HEELS PROPPED ON PILLOWS. SCDS IN PLACE. BREATHING SLOW AND EVEN. O2 97% ON 4L/NC. WILL CONTINUE TO MONITOR
[2018-10-31 20:00] VITALS: BP 131/48
--- NOTE | 2018-10-31 21:00 | NUR ---
PT LYING IN BED RESTING, NO CHANGES NOTED. WITHOUT NEEDS. FAMILY AT BEDSIDE. WILL CONTINUE TO MONITOR
--- NOTE | 2018-10-31 22:22 | NUR ---
PT RESTING IN BED, NO CHANGES NOTED. DENIES NEEDS. WILL CONTINUE TO MONITOR
--- NOTE | 2018-10-31 23:55 | NUR ---
PT LYING IN BED RESTING, NO CHANGES NOTED. WITHOUT NEEDS. WILL CONTINUE TO MONITOR
--- NOTE | 2018-11-01 02:35 | NUR ---
PT LYING IN BED RESTING WITHOUT DISTRESS OR NEEDS. NO CHANGES NOTED. WILL CONTINUE TO MONITOR
--- NOTE | 2018-11-01 04:30 | NUR ---
PT LYING IN BED RESTING, BREATHING SLOW AND EVEN. NO SIGNS OF DISTRESS. WITHOUT NEEDS. WILL CONTINUE TO MONITOR
--- NOTE | 2018-11-01 06:14 | NUR ---
PT SITTING UP IN BED RESTING, NO SIGNS OF DISTRESS. BREATHING SLOW AND EVEN. NO CHANGES NOTED. WILL CONTINUE TO MONITOR
--- NOTE | 2018-11-01 08:00 | NUR ---
RESTING WITH EYES CLOSED WITH RESP. EVEN AND UNLABORED.O2 4 LITERS N/C PULSE OX 90%. REPOSITIONED FOR COMFORT NO FACIAL GRIMACING NOTED. CALL LIGHT IN REACH WITH IVF INFUSING AT PRESCRIBED RATE.
[2018-11-01 08:49] VITALS: BP 123/44
--- NOTE | 2018-11-01 11:00 | NUR ---
HOSPICE NURSE HERE AND REPOSITIONED PT. FOR COMFORT GENERALISZED EDEMA TO BUE. REP. EVEN AND UNLABORED. MS SYSTEMS TEST ANALYST INFUSING AT PRESCRIBED RATE.
--- NOTE | 2018-11-01 11:30 | NUR ---
HOSPICE NURSE HERE TP PRONOUNCE.
--- NOTE | 2018-11-01 13:00 | NUR ---
CALLED TO RESIDENT ROOM WITH PT. NOTED WITHOUT RESPIRATIONS AND HR. SKIN WARM TO TOUCH. MOHS SURGEON STATES RESPIRATIONS HAD JUST LEFT ROOM. HOPICE NURSE NOTIFIED OF CONDITION AND STATED WAS ON THEIR WAY. FAMILY NOTIFIED PER HOSPICE.
--- NOTE | 2018-11-01 14:00 | NUR ---
FAMILY HERE AND REQUESTING NOT TO CALL HOME YET UNTIL FAMILY CAN COME.
--- NOTE | 2018-11-01 15:00 | NUR ---
FAMILY REQUEST TO CALL THE [facility] HOME WHICH AWAS DONE. STATED WOULD BE OUT WITHIN THE HR. [facility] PROVIDED WITH FAMILY AND FRAMER PRESENT.
--- NOTE | 2018-11-01 17:31 | NUR ---
BODY RELEASED TO HOME AT THIS TIME.
--- NOTE | 2018-11-06 11:51 | MORECARE ---
CASE MANAGEMENT DISCHARGE SUMMARY PATIENT: MYRA QUICK UNIT: [id number] ADM DATE: 10/30/18 AGE: 83 : 33 SEX: M ROOM/BED: D.2240 AUTHOR: DAVE MEZA PHYSICIAN: REFERRING PHYSICIAN: FOREST MAN MD DATE OF SERVICE: 11/06/18 Discharge Plan Patient Name: MYRA QUICK Facility: [facility]:[place] : 1935 Planned Disposition: Anticipated Discharge Date: Discharge Date: 11/01/2018 Expected LOS: 0 Initial Reviewer: [email or web address] Initial Review Date: 11/06/2018 Generated: 11/06/18 12:51 pm Patient Name: MYRA QUICK Page 48431 at 1151 All edits/amendments must be made on the electronic document DICTATION DATE: 11/06/18 1150 WOOD EXPERIMENTAL MECHANIC: DORA 11/06/18 1150 RPT#: [id number] DC DATE:11/01/18 STATUS: DIS IN [facility] [address] [place] [address] END OF REPORT
--- NOTE | 2018-11-07 15:18 | NUR ---
Per CMS protocol, restraint report logged into data base.
== END 2018-11-01 17:33 | DRG 951 ==
LOC: D.ICU 15:56 → D.MS 16:14
PROVIDERS: ADMIT Legal Medicine
DX: Z51.5 Encounter for palliative care (principal)